=== PATIENT | male | born 1965 | race Caucasian/White ===

== ENCOUNTER → 2017-01-15 | Outpatient (CLI) | payer MEDICARE, MEDICAID ==
[~2017-01-15] MED LIST: ACTO30TA7 PO; BACL10TA2 PO; BUSP10TA PO; CYCL10TA PO; CYMB60CA3 PO; DICY20TA11 PO; DOCQ100C PO; HUMA50IN3 SC; LANTINJ4 SC; LISI-542 PO; METF-415 PO; ROBA750T4 PO; SIMV40TA2 PO; TRAM50TA2 PO; TRAZ100T4 PO; VICO5TAB16 PO; VICT18IN SC
--- NOTE | 2017-01-16 02:07 | ECWPNPC ---
PATIENT NAME: TERESA MALIK : 1965 GENDER: MALE VISIT DATE: 01/15/2017 DISCHARGE DATE: 01/15/17 1039 VISIT LOCKED DATE TIME: PHYSICIAN: OCTAVIANO SPARKS PHYSICIAN PAGER NO: [phone] RESOURCE: OCTAVIANO SPARKS REASON FOR APPOINTMENT 1. BACK HISTORY OF PRESENT ILLNESS HISTORY OF PRESENT ILLNESS: PAIN THE PATIENT DESCRIBES THE PAIN... FALL RISK SCREENING: SCREENING :NO FALLS IN THE PAST YEAR TODAY'S VISIT: NOTES: RATES PAIN TODAY 7-8/10. NOTES WORST OF PAIN IS AT BASE OF NECK AND ACROSS SHOULDERS. STATES LOW BACK IS GENERALLY FEELING VERY GOOD BUT DID HAVE FLAIR OF PAIN AFTER SHOVELING SNOW. NOTES NECK PAIN IS THE MOST PROMINENT AREA. . CURRENT MEDICATIONS TAKING ALBUTEROL SULFATE (2.5 MG/3ML) 0.083% NEBULIZATION SOLUTION 3 ML INHALATION THREE TIMES A DAY TAKING SIMVASTATIN 40 MG TABLET 1 TABLET IN THE EVENING ORALLY ONCE A DAY TAKING VENTOLIN HFA 108 (90 BASE) MCG/ACT AEROSOL SOLUTION 2 PUFFS NEEDED INHALATION EVERY 4 HRS TAKING TRAZODONE HCL 100 MG TABLET 1 TABLET AT BEDTIME ORALLY ONCE A DAY TAKING METFORMIN HCL 1000 MG (OSM) TABLET EXTENDED RELEASE 24 HOUR 1 TABLET WITH EVENING MEAL ORALLY BID TAKING BUSPIRONE HCL 10 MG TABLET 1 TABLET ORALLY TWICE A DAY TAKING ACCU-CHEK PEDRO PLUS STRIP DIRECTED IN VITRO TAKING ALCOHOL PREP 70 % PAD DIRECTED TAKING HUMALOG KWIKPEN 100 UNIT/ML SOLUTION 10UNITS SUBCUTANEOUS BID TAKING ACTOS 30 MG TABLET 1 TABLET ORALLY ONCE A DAY TAKING LISINOPRIL 5 MG TABLET 1 TABLET ORALLY ONCE A DAY TAKING DICYCLOMINE HCL 20 MG TABLET 1 TABLET ORALLY FOUR TIMES A DAY TAKING BD PEN MINI ------ MISCELLANEOUS DIRECTED FOR USE IN GIVEN INSULIN DAILY TAKING LANTUS SOLOSTAR 100 UNIT/ML SOLUTION 70 UNITS SUBCUTANEOUS ONCE A DAY TAKING COLACE 100 MG CAPSULE 2 ORALLY BID TAKING CYMBALTA 60 MG CAPSULE DELAYED RELEASE PARTICLES 1 CAPSULE ORALLY ONCE A DAY TAKING FLEXERIL 10 MG TABLET 1 TABLET ORALLY BID TAKING GABAPENTIN 300 MG CAPSULE 1 CAPSULE ORALLY THREE TIMES A DAY TAKING NORCO 5-325 MG TABLET 1-2 TABLET ORALLY Q6H PRN MDD8 TAKING TRAMADOL HCL 50 MG TABLET 1-2 TABS ORALLY EVERY 6 HOURS NEEDED MDD8 TAKING BYDUREON 2MG/VIAL ONCE WEEKLY NOT-TAKING VICTOZA 18 MG/3ML SOLUTION 1.8 ML SUBCUTANEOUS ONCE A WEEK NOT-TAKING ADVAIR DISKUS 250-50 MCG/DOSE AEROSOL POWDER BREATH ACTIVATED INHALE ONE PUFF BY MOUTH TWICE A DAY , NOTES: NONE NOT-TAKING CYCLOBENZAPRINE HCL 10 MG TABLET 1 TABLET ORALLY THREE TIMES A DAY NOT-TAKING OXYCODONE HCL 5 MG TABLET 1 TABLET ORALLY EVERY 4 HOURS NEEDED NOT-TAKING HYDROCODONE-ACETAMINOPHEN 5-325 MG TABLET 1 TABLET NEEDED ORALLY EVERY 4- 6 HRS PRN NOT-TAKING TRAMADOL HCL 50 MG TABLET 1-2 TABLET NEEDED ORALLY EVERY 4 HRS MDD4 NOT-TAKING TRAMADOL HCL 50 MG TABLET 1 -2 TABLET ORALLY EVERY 6 HRS PRN PAIN MDD=6 NOT-TAKING NORCO 5-325 MG TABLET 1 TABLET ORALLY EVERY 6 HRS PRN PAIN MDD=4 MEDICATION LIST REVIEWED AND RECONCILED WITH THE PATIENT PAST MEDICAL HISTORY DM TYPE II ASTHMA SLEEP DISORDER HYPERLIPIDEMIA HYPOGONADISM HX FRACTURE LEFT ANKLE AND BACK HYPERTENSION ALLERGIES PERCOCET: HIVES, THROAT SWELLING: ALLERGY SOCIAL HISTORY GENERAL: TOBACCO USE ARE YOU A:CURRENT SMOKER 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 NEW PATIENT PAIN DIARY TODAY'S VISITNOTES FROM 0-10, WHAT LEVEL IS YOUR PAIN TODAY?0 PAIN CLINIC PFS, CLERGY, PUBLIC HEALTH REFERRALS PFS REFERRAL NEEDED?NO CLERGY REFERRAL NEEDED?NO PUBLIC HEALTH REFERRAL NEEDED?NO WAS THE PROVIDER NOTIFIED OF ANY PERTINENT INFO?NO PFS REFERRAL NEEDED?NO CLERGY REFERRAL NEEDED?NO PUBLIC HEALTH REFERRAL NEEDED?NO WAS THE PROVIDER NOTIFIED OF ANY PERTINENT INFO?NO REVIEW OF SYSTEMS CONSTITUTIONAL: ANY CHANGE IN YOUR MEDICAL CONDITION? NO . CHILLS NO . FEVER NO . INFECTION: DO YOU HAVE NEW INFECTIONS? NO . DO YOU HAVE HISTORY OF MRSA? NO . MUSCULOSKELETAL: ANY NEW PATTERNS OF PAIN OR NUMBNESS? NO . GASTROENTEROLOGY: ANY NEW CHANGE IN BOWEL CONTROL? NO . GENITOURINARY: ANY NEW CHANGE IN BLADDER CONTROL? NO . IS THERE A CHANCE YOU COULD BE ? NO . HEMATOLOGY/LYMPH: DO YOU TAKE ANY BLOOD THINNERS? (FOR EXAMPLE- COUMADIN, PLAVIX, AGGRENOX, PLATEL, PRADAXA, OR XARELTO) NO . WHEN WAS YOUR LAST DOSE? DATE: TIME: . NEUROLOGY: HAVE YOU FALLEN IN THE PAST 6 MONTHS? NO . ANY NEW EXTREMITY NUMBNESS OR WEAKNESS? NO . CARDIOLOGY: DO YOU HAVE A PACEMAKER OR DEFIBRILLATOR? NO . RESPIRATORY: SLEEP APNEA YES - NOT TREATED - DID NOT SLEEP STUDY. WEARS OXYGEN AT NIGHT . HAVE YOU BEEN SICK IN THE PAST WEEK? NO . FEVER NO . FLU LIKE SYMPTOMS? NO . COUGH NO . INTEGUMENTARY: DO YOU HAVE ANY RASHES OR OPEN SORES? NO . ALLERGIC/IMMUNO: ARE YOU ALLERGIC TO SHELLFISH OR IV DYE? NO . ANY NEW ALLERGIES? NO . PSYCHIATRIC: DO YOU HAVE THOUGHTS OF HURTING YOURSELF OR SOMEONE ELSE? NO . ARE YOU ABUSED, NEGLECTED, OR IN AN UNSAFE ENVIRONMENT? NO . ENDOCRINOLOGY: ARE YOU DIABETIC? YES - 120 - 46. . OTHER: DO YOU NEED ANY PRESCRIPTIONS? NO . IF YES, PLEASE LIST: ____ . ANY NEW PROBLEMS WITH YOUR MEDICATIONS? NO . WHEN DID YOU LAST EAT? ____ . WHEN DID YOU LAST DRINK? ____ . WHAT DID YOU LAST DRINK? ____ . NAME OF PERSON DRIVING YOU HOME? ____ . DO YOU HAVE ANY OTHER QUESTIONS OR CONCERNS NO . REVIEWED BY: PROVIDER: OCTAVIANO MARTINEZ . VITAL SIGNS WT 285 LBS, HT 68 IN, BMI 43.33 INDEX, BP 162/80 MM HG, HR 76 /MIN, RR 16 /MIN, TEMP 97.8 F, OXYGEN SAT % 96, NA INITIALS TL 0950, REVIEWED BY: JAI. EXAMINATION GENERAL EXAMINATION: LUNGS: NO CRACKLES, CLEAR TO AUSCULTATION BILATERALLY. HEART:HEART RATE REGULAR. MUSCULOSKELETAL:MILD WEAKNESS IN PROXIMAL LOWER EXTREMITIES. CAN FLEX AT ANKLES AND TOES, TRIGGER POINTS:, ELICITED WITH PALPATION OVER MID THORACIC MUSCLES . POINT TENDERNESS OVER LUMBAR PARAVERTEBRAL MUSCLES. CAN RISE TO STANDING POSITION. POSTURE SLIGHTLY STOOPED. GAIT WIDE BASED NON ANTALGIC. ASSESSMENTS BURST FRACTURE OF LUMBAR VERTEBRA - S32.001A (PRIMARY) BACK PAIN - M54.9 MYALGIA - M79.1 CHRONIC PRESCRIPTION OPIATE USE - Z79.891 TREATMENT BURST FRACTURE OF LUMBAR VERTEBRA NOTES: UTOX TODAYWALK DAILY. CALL IF INJECTION TREATMENT NEEDED. USE TENS UNIT TO BACK NEEDED. USE PAIN MEDS INFREQUENTLY. TALK TO NEW PRIMARY CARE PROVIDER ABOUT SLEEP APNEA. SLEEPING PILLS NOT A GOOD IDEA. CLINICAL NOTES: ISTOP REGISTRY REVIEWED AND DEMNOSTRATES COMPLLIANCE. BRINGS IN MEDICATIONS WHICH IS APPROPRIATE FOR WHAT WAS DISPENSED. RECENT URINE TOXICOLOGY REVIEWED. NO UNAUTHORIZED MEDICATIONS. NO ILLICIT SUBSTANCES AND PRESCRIBED MEDICATIONS WERE PRESENT. PROCEDURE CODES FA211 ESTABILISHED PATIENT [facility] CHARGE DISPOSITION & COMMUNICATION FOLLOW UP 2-3 MONTS ELECTRONICALLY SIGNED BY INDU PARRA ON 01/15/2017 AT 10:56 AM EST DISCLAIMER : THIS IS A VISIT SUMMARY EXTRACTED FROM THE [facility] CHART. IT IS NOT A COPY OF THE [employer] PROGRESS NOTE. LAZARO
== END ==
LOC: M PAIN 09:20
PROVIDERS: ATTEND Nurse Practitioner Family
DX: Z09 Encounter for follow-up examination after completed treatment for conditions other than malignant neoplasm (principal); S32.001A Stable burst fracture of unspecified lumbar vertebra, initial encounter for closed fracture; M54.9 Dorsalgia, unspecified; M79.1 Myalgia; I10 Essential (primary) hypertension; E11.9 Type 2 diabetes mellitus without complications; J45.909 Unspecified asthma, uncomplicated; G47.30 Sleep apnea, unspecified; E78.5 Hyperlipidemia, unspecified; Z88.5 Allergy status to narcotic agent; F17.200 Nicotine dependence, unspecified, uncomplicated; Z79.891 Long term (current) use of opiate analgesic; Z79.52 Long term (current) use of systemic steroids; Z79.84 Long term (current) use of oral hypoglycemic drugs; Z79.4 Long term (current) use of insulin; Z79.899 Other long term (current) drug therapy; Z87.81 Personal history of (healed) traumatic fracture; Y92.9 Unspecified place or not applicable; Y93.9 Activity, unspecified; Y99.9 Unspecified external cause status; X58.XXXA Exposure to other specified factors, initial encounter

== ENCOUNTER → 2017-03-25 | Outpatient (CLI) | payer MEDICARE, MEDICAID ==
--- NOTE | 2017-03-27 02:32 | ECWPNPC ---
PATIENT NAME: TERESA MALIK : 1965 GENDER: MALE VISIT DATE: 03/25/2017 DISCHARGE DATE: 03/25/17 1027 VISIT LOCKED DATE TIME: PHYSICIAN: OCTAVIANO SPARKS PHYSICIAN PAGER NO: [phone] RESOURCE: OCTAVIANO SPARKS REASON FOR APPOINTMENT 1. BACK HISTORY OF PRESENT ILLNESS HISTORY OF PRESENT ILLNESS: PAIN THE PATIENT DESCRIBES THE PAIN... FALL RISK SCREENING: SCREENING :NO FALLS IN THE PAST YEAR TODAY'S VISIT: NOTES: RATES PAIN TODAY 6/10. DESCRIBES PAIN ACHING.STATES HE HAS BEEN ABLE TO BE MORE ACTIVE AND IS WALKING MORE. STILL HAS SOME SHOULDER DISCOMFORT. HAS NOT RETURNED TO HIS SURGEONS IN [place] FOR RE-EVAL. STATES HE IS "DOING TOO WELL."CONTINUES TO USE OXYGEN AT [facility] WHEN AWAY [facility] HOME AFTER ACTIVITY.. CURRENT MEDICATIONS TAKING ALBUTEROL SULFATE (2.5 MG/3ML) 0.083% NEBULIZATION SOLUTION 3 ML INHALATION THREE TIMES A DAY TAKING SIMVASTATIN 40 MG TABLET 1 TABLET IN THE EVENING ORALLY ONCE A DAY TAKING VENTOLIN HFA 108 (90 BASE) MCG/ACT AEROSOL SOLUTION 2 PUFFS INHALATION TWICE DAILY TAKING TRAZODONE HCL 100 MG TABLET 1 TABLET AT BEDTIME ORALLY ONCE A DAY TAKING METFORMIN HCL 1000 MG (OSM) TABLET EXTENDED RELEASE 24 HOUR 1 TABLET WITH EVENING MEAL ORALLY BID TAKING BUSPIRONE HCL 10 MG TABLET 1 TABLET ORALLY TWICE A DAY TAKING ACCU-CHEK PEDRO PLUS STRIP DIRECTED IN VITRO TAKING ALCOHOL PREP 70 % PAD DIRECTED TAKING HUMALOG KWIKPEN 100 UNIT/ML SOLUTION 10UNITS SUBCUTANEOUS BID TAKING ACTOS 30 MG TABLET 1 TABLET ORALLY ONCE A DAY TAKING LISINOPRIL 5 MG TABLET 1 TABLET ORALLY ONCE A DAY TAKING DICYCLOMINE HCL 20 MG TABLET 1 TABLET ORALLY FOUR TIMES A DAY TAKING BD PEN MINI ------ MISCELLANEOUS DIRECTED FOR USE IN GIVEN INSULIN DAILY TAKING LANTUS SOLOSTAR 100 UNIT/ML SOLUTION 70 UNITS SUBCUTANEOUS ONCE A DAY TAKING COLACE 100 MG CAPSULE 2 ORALLY BID TAKING CYMBALTA 60 MG CAPSULE DELAYED RELEASE PARTICLES 1 CAPSULE ORALLY ONCE A DAY TAKING GABAPENTIN 300 MG CAPSULE 1 CAPSULE ORALLY THREE TIMES A DAY TAKING BYDUREON 2MG/VIAL ONCE WEEKLY TAKING TRAMADOL HCL 50 MG TABLET 1-2 TABS ORALLY EVERY 6 HOURS PRN PAIN MDD=6 TAKING NORCO 5-325 MG TABLET 1-2 TABLET ORALLY Q6H PRN MDD6 DISCONTINUED FLEXERIL 10 MG TABLET 1 TABLET ORALLY BID DISCONTINUED VICTOZA 18 MG/3ML SOLUTION 1.8 ML SUBCUTANEOUS ONCE A WEEK DISCONTINUED ADVAIR DISKUS 250-50 MCG/DOSE AEROSOL POWDER BREATH ACTIVATED INHALE ONE PUFF BY MOUTH TWICE A DAY , NOTES: NONE DISCONTINUED CYCLOBENZAPRINE HCL 10 MG TABLET 1 TABLET ORALLY THREE TIMES A DAY DISCONTINUED OXYCODONE HCL 5 MG TABLET 1 TABLET ORALLY EVERY 4 HOURS NEEDED DISCONTINUED HYDROCODONE-ACETAMINOPHEN 5-325 MG TABLET 1 TABLET NEEDED ORALLY EVERY 4- 6 HRS PRN DISCONTINUED TRAMADOL HCL 50 MG TABLET 1-2 TABLET NEEDED ORALLY EVERY 4 HRS MDD4 DISCONTINUED TRAMADOL HCL 50 MG TABLET 1 -2 TABLET ORALLY EVERY 6 HRS PRN PAIN MDD=6 DISCONTINUED NORCO 5-325 MG TABLET 1 TABLET ORALLY EVERY 6 HRS PRN PAIN MDD=4 MEDICATION LIST REVIEWED AND RECONCILED WITH THE PATIENT PAST MEDICAL HISTORY DM TYPE II ASTHMA SLEEP DISORDER HYPERLIPIDEMIA HYPOGONADISM HX FRACTURE LEFT ANKLE AND BACK HYPERTENSION ALLERGIES PERCOCET: HIVES, THROAT SWELLING: ALLERGY REVIEW OF SYSTEMS CONSTITUTIONAL: ANY CHANGE IN YOUR MEDICAL CONDITION? NO . CHILLS NO . FEVER NO . INFECTION: DO YOU HAVE NEW INFECTIONS? NO . DO YOU HAVE HISTORY OF MRSA? NO . MUSCULOSKELETAL: ANY NEW PATTERNS OF PAIN OR NUMBNESS? NO . ARTHRITIS JOINT PAIN IN WRITS, USING SPLINTS AT NIGHT . GASTROENTEROLOGY: ANY NEW CHANGE IN BOWEL CONTROL? NO . GENITOURINARY: ANY NEW CHANGE IN BLADDER CONTROL? NO . IS THERE A CHANCE YOU COULD BE ? NO . HEMATOLOGY/LYMPH: DO YOU TAKE ANY BLOOD THINNERS? (FOR EXAMPLE- COUMADIN, PLAVIX, AGGRENOX, PLATEL, PRADAXA, OR XARELTO) NO . WHEN WAS YOUR LAST DOSE? DATE: TIME: . NEUROLOGY: HAVE YOU FALLEN IN THE PAST 6 MONTHS? YES . ANY NEW EXTREMITY NUMBNESS OR WEAKNESS? NO . CARDIOLOGY: DO YOU HAVE A PACEMAKER OR DEFIBRILLATOR? NO . RESPIRATORY: HAVE YOU BEEN SICK IN THE PAST WEEK? NO . FEVER NO . FLU LIKE SYMPTOMS? NO . COUGH NO . INTEGUMENTARY: DO YOU HAVE ANY RASHES OR OPEN SORES? YES - ABCESS/CARBUNCLES RIGHT INNER THIGH - ON ARTHRITIS . ALLERGIC/IMMUNO: ARE YOU ALLERGIC TO SHELLFISH OR IV DYE? NO . ANY NEW ALLERGIES? NO . PSYCHIATRIC: DO YOU HAVE THOUGHTS OF HURTING YOURSELF OR SOMEONE ELSE? NO . ARE YOU ABUSED, NEGLECTED, OR IN AN UNSAFE ENVIRONMENT? NO . ENDOCRINOLOGY: ARE YOU DIABETIC? YES - BLOOD SUGARS UNDER GOOD CONTROL . OTHER: DO YOU NEED ANY PRESCRIPTIONS? YES . IF YES, PLEASE LIST: TRAMADOL, VICODIN . ANY NEW PROBLEMS WITH YOUR MEDICATIONS? NO . WHEN DID YOU LAST EAT? ____ . WHEN DID YOU LAST DRINK? ____ . WHAT DID YOU LAST DRINK? ____ . NAME OF PERSON DRIVING YOU HOME? ____ . DO YOU HAVE ANY OTHER QUESTIONS OR CONCERNS NO . REVIEWED BY: PROVIDER: OCTAVIANO MARTINEZ . VITAL SIGNS WT 298.8 LBS, HT 68 IN, BMI 45.43 INDEX, BP 159/83 MM HG, HR 61 /MIN, RR 20 /MIN, TEMP 97.6 F, OXYGEN SAT % 93%, NA INITIALS TL 0950, REVIEWED BY: CM. EXAMINATION GENERAL EXAMINATION: LUNGS: NO CRACKLES, CLEAR TO AUSCULTATION BILATERALLY. HEART:HEART RATE REGULAR. MUSCULOSKELETAL:MILD WEAKNESS IN PROXIMAL LOWER EXTREMITIES. CAN FLEX AT ANKLES AND HIPS. . MILD TENDERNESS OVER LUMBAR PARAVERTEBRAL MUSCLES. CAN RISE EASILY TO STANDING POSITION. POSTURE SLIGHTLY STOOPED. GAIT WIDE BASED NON ANTALGIC AND RAPID.. ASSESSMENTS BACK PAIN - M54.9 (PRIMARY) BURST FRACTURE OF LUMBAR VERTEBRA - S32.001A MYALGIA - M79.1 PRIMARY OSTEOARTHRITIS INVOLVING MULTIPLE JOINTS - M15.0 CHRONIC PRESCRIPTION OPIATE USE - Z79.891 TREATMENT BACK PAIN REFILL TRAMADOL HCL TABLET, 50 MG, 1-2 TABS, ORALLY, EVERY 6 HOURS PRN PAIN MDD=6, 30 DAY(S), 180, REFILLS 2 REFILL NORCO TABLET, 5-325 MG, 1-2 TABLET, ORALLY, Q6H PRN MDD6, 30 DAY(S), 160, REFILLS 0 NOTES: CONTINUE CURRENT MEDS. WILL CONTINUE SLOW WEAN OF HYDROCODONE. WORK ON WEIGHT LOSS. WATCH DIET - DECREASE QUANTITY. PROCEDURE CODES FA211 ESTABILISHED PATIENT [facility] CHARGE DISPOSITION & COMMUNICATION FOLLOW UP 3 MONTHS ELECTRONICALLY SIGNED BY INDU PARRA ON 03/25/2017 AT 12:37 PM EDT DISCLAIMER : THIS IS A VISIT SUMMARY EXTRACTED FROM THE [facility] CHART. IT IS NOT A COPY OF THE [facility]. MTDD
== END ==
LOC: M PAIN 09:20
PROVIDERS: ATTEND Nurse Practitioner Family
DX: M54.9 Dorsalgia, unspecified (principal); S32.001A Stable burst fracture of unspecified lumbar vertebra, initial encounter for closed fracture; M79.1 Myalgia; M15.0 Primary generalized (osteo)arthritis; Z79.891 Long term (current) use of opiate analgesic; Z79.899 Other long term (current) drug therapy; Z79.84 Long term (current) use of oral hypoglycemic drugs; Z79.4 Long term (current) use of insulin; E11.9 Type 2 diabetes mellitus without complications; J45.909 Unspecified asthma, uncomplicated; G47.9 Sleep disorder, unspecified; E78.5 Hyperlipidemia, unspecified; I10 Essential (primary) hypertension; Z88.5 Allergy status to narcotic agent; X58.XXXA Exposure to other specified factors, initial encounter; Y92.89 Other specified places as the place of occurrence of the external cause; Y93.89 Activity, other specified; Y99.8 Other external cause status

== ENCOUNTER → 2017-06-20 | Outpatient (CLI) | payer MEDICARE, MEDICAID ==
[~2017-06-20] MED LIST changes: +ACTO30TA15 PO; -ACTO30TA7 PO; +TRAZ-136 PO; -TRAZ100T4 PO
--- NOTE | 2017-07-11 01:08 | ECWPNPC ---
PATIENT NAME: TERESA MALIK : 1965 GENDER: MALE VISIT DATE: 06/20/2017 DISCHARGE DATE: 06/20/17 1026 VISIT LOCKED DATE TIME: PHYSICIAN: OCTAVIANO SPARKS PHYSICIAN PAGER NO: [phone] RESOURCE: OCTAVIANO SPARKS REASON FOR APPOINTMENT 1. BACK HISTORY OF PRESENT ILLNESS HISTORY OF PRESENT ILLNESS: PAIN THE PATIENT DESCRIBES THE PAIN... FALL RISK SCREENING: SCREENING :NO FALLS IN THE PAST YEAR TODAY'S VISIT: NOTES: INSURANCE HAS STOPPED PAYING FOR TENS UNIT PADS, WANTS TO KEEP PAIN MEDS THE SAME UNTIL HE CAN FIND A NEW SOURCE FOR FOR THIS. RATES PAIN TODAY 7/10. DESCRIBES PAIN CONSTANT AND ACHING. NOTES ALMOST NO PAIN IN LOW BACK, BUT SHOULDERS ARE VERY PAINFUL.. CURRENT MEDICATIONS TAKING ALBUTEROL SULFATE (2.5 MG/3ML) 0.083% NEBULIZATION SOLUTION 3 ML INHALATION THREE TIMES A DAY TAKING SIMVASTATIN 40 MG TABLET 1 TABLET IN THE EVENING ORALLY ONCE A DAY TAKING VENTOLIN HFA 108 (90 BASE) MCG/ACT AEROSOL SOLUTION 2 PUFFS INHALATION TWICE DAILY TAKING TRAZODONE HCL 100 MG TABLET 1 TABLET AT BEDTIME ORALLY ONCE A DAY TAKING METFORMIN HCL 1000 MG (OSM) TABLET EXTENDED RELEASE 24 HOUR 1 TABLET WITH EVENING MEAL ORALLY BID TAKING BUSPIRONE HCL 10 MG TABLET 1 TABLET ORALLY TWICE A DAY TAKING ACCU-CHEK PEDRO PLUS STRIP DIRECTED IN VITRO TAKING ALCOHOL PREP 70 % PAD DIRECTED TAKING HUMALOG KWIKPEN 100 UNIT/ML SOLUTION 10UNITS SUBCUTANEOUS BID TAKING ACTOS 30 MG TABLET 1 TABLET ORALLY ONCE A DAY TAKING LISINOPRIL 5 MG TABLET 1 TABLET ORALLY ONCE A DAY TAKING DICYCLOMINE HCL 20 MG TABLET 1 TABLET ORALLY FOUR TIMES A DAY TAKING BD PEN MINI ------ MISCELLANEOUS DIRECTED FOR USE IN GIVEN INSULIN DAILY TAKING LANTUS SOLOSTAR 100 UNIT/ML SOLUTION 70 UNITS SUBCUTANEOUS ONCE A DAY TAKING COLACE 100 MG CAPSULE 2 ORALLY BID TAKING CYMBALTA 60 MG CAPSULE DELAYED RELEASE PARTICLES 1 CAPSULE ORALLY ONCE A DAY TAKING GABAPENTIN 300 MG CAPSULE 1 CAPSULE ORALLY THREE TIMES A DAY TAKING BYDUREON 2MG/VIAL ONCE WEEKLY TAKING TRAMADOL HCL 50 MG TABLET 1-2 TABS ORALLY EVERY 6 HOURS PRN PAIN MDD=6 TAKING NORCO 5-325 MG TABLET 1-2 TABLET ORALLY Q6H PRN MDD=5 MEDICATION LIST REVIEWED AND RECONCILED WITH THE PATIENT PAST MEDICAL HISTORY DM TYPE II ASTHMA SLEEP DISORDER HYPERLIPIDEMIA HYPOGONADISM HX FRACTURE LEFT ANKLE AND BACK HYPERTENSION ALLERGIES PERCOCET: HIVES, THROAT SWELLING: ALLERGY SURGICAL HISTORY HERNIA REPAIR X 3 07/2011 HOSPITALIZATION/MAJOR DIAGNOSTIC PROCEDURE FELL OUT OF TREE 35 FT DROP SURGICALY RELATED REVIEW OF SYSTEMS REVIEWED BY: PROVIDER: OCTAVIANO ORTAP . CONSTITUTIONAL: ANY CHANGE IN YOUR MEDICAL CONDITION? NO . CHILLS NO . FEVER NO . INFECTION: DO YOU HAVE NEW INFECTIONS? NO . DO YOU HAVE HISTORY OF MRSA? NO . MUSCULOSKELETAL: ANY NEW PATTERNS OF PAIN OR NUMBNESS? NO . GASTROENTEROLOGY: ANY NEW CHANGE IN BOWEL CONTROL? NO . GENITOURINARY: ANY NEW CHANGE IN BLADDER CONTROL? NO . IS THERE A CHANCE YOU COULD BE ? NO . HEMATOLOGY/LYMPH: DO YOU TAKE ANY BLOOD THINNERS? (FOR EXAMPLE- COUMADIN, PLAVIX, AGGRENOX, PLATEL, PRADAXA, OR XARELTO) NO . WHEN WAS YOUR LAST DOSE? DATE: TIME: . NEUROLOGY: HAVE YOU FALLEN IN THE PAST 6 MONTHS? NO . ANY NEW EXTREMITY NUMBNESS OR WEAKNESS? NO . CARDIOLOGY: DO YOU HAVE A PACEMAKER OR DEFIBRILLATOR? NO . RESPIRATORY: SLEEP APNEA NEWLY DIAGNOSOED. CPAP TO BE DELIVERED NEXT SATURDAY . HAVE YOU BEEN SICK IN THE PAST WEEK? NO . FEVER NO . FLU LIKE SYMPTOMS? NO . SHORTNESS OF BREATH ON EXERTION ON CHRONIC OXYGEN . COUGH NO . INTEGUMENTARY: DO YOU HAVE ANY RASHES OR OPEN SORES? NO . ALLERGIC/IMMUNO: ARE YOU ALLERGIC TO SHELLFISH OR IV DYE? NO . ANY NEW ALLERGIES? NO . PSYCHIATRIC: DO YOU HAVE THOUGHTS OF HURTING YOURSELF OR SOMEONE ELSE? NO . ARE YOU ABUSED, NEGLECTED, OR IN AN UNSAFE ENVIRONMENT? NO . ENDOCRINOLOGY: ARE YOU DIABETIC? YES - STABLE BUT INSURANCE STOPPED COVERING HIS INSULIN. . OTHER: DO YOU NEED ANY PRESCRIPTIONS? NO . IF YES, PLEASE LIST: ____ . ANY NEW PROBLEMS WITH YOUR MEDICATIONS? NO . WHEN DID YOU LAST EAT? ____ . WHEN DID YOU LAST DRINK? ____ . WHAT DID YOU LAST DRINK? ____ . NAME OF PERSON DRIVING YOU HOME? ____ . DO YOU HAVE ANY OTHER QUESTIONS OR CONCERNS NO . VITAL SIGNS WT 287.0 LBS, HT 68 IN, BMI 43.63 INDEX, BP 148/87 MM HG, HR 105 /MIN, RR 18 /MIN, TEMP 98.0 F, OXYGEN SAT % 97, SAFE IN ENV? (Y/N) YES, NA INITIALS MP 951, REVIEWED BY: CHARITY. EXAMINATION GENERAL EXAMINATION: LUNGS: NO CRACKLES, CLEAR TO AUSCULTATION BILATERALLY. HEART:HEART RATE REGULAR. MUSCULOSKELETAL:MILD WEAKNESS IN PROXIMAL LOWER EXTREMITIES. CAN FLEX AT ANKLES AND HIPS. . MILD TENDERNESS OVER LUMBAR PARAVERTEBRAL MUSCLES. CAN RISE EASILY TO STANDING POSITION. POSTURE SLIGHTLY STOOPED. GAIT WIDE BASED NON ANTALGIC AND RAPID.. ASSESSMENTS BACK PAIN - M54.9 (PRIMARY) BURST FRACTURE OF LUMBAR VERTEBRA - S32.001A MYALGIA - M79.1 PRIMARY OSTEOARTHRITIS INVOLVING MULTIPLE JOINTS - M15.0 CHRONIC PRESCRIPTION OPIATE USE - Z79.891 TREATMENT BACK PAIN REFILL TRAMADOL HCL TABLET, 50 MG, 1-2 TABS, ORALLY, EVERY 6 HOURS PRN PAIN MDD=6, 30 DAY(S), 180, REFILLS 2 REFILL NORCO TABLET, 5-325 MG, 1-2 TABLET, ORALLY, Q6H PRN MDD=5, 30 DAY(S), 140, REFILLS 0 NOTES: WORK ON QUITTING SMOKING. LOOK FOR TENS ELECTRODES ON INTERNET. CLINICAL NOTES: FALLS CARE PLAN: 1. RECOMMEND REMOVING ALL THROW RUGS. 2. RECOMMEND NIGHT LIGHTS 3. RECOMMEND WEARING RUBBER SOLED SHOES AND TO NOT GO BAREFOOT. 4.. ADVISED TO CHANGE POSITION SLOWLY FROM SUPINE TO STANDING TO AVOID DIZZINESS. 5. DO NT CLIMB TREES, # 226 TOBACCO USE SCREENING/INTERVENTION: PATIENT CURRENTLY USED TOBACCO. WAS OFFERED SMOKING CESSATION FOR GUIDANCE IN QUITTING THROUGH THE [facility] QUITS PROGRAM AND THE [facility] CESSATION PROGRAM. , #128 - SCREENING BMI AND F/U PLAN IN : BMI ABOVE NORMAL TODAY. DISCUSSED WITH PATIENT NUTRITIONAL FOOD CHOICES TO ASSIST WITH WEIGHT LOSS. RECCOMMENDED REDUCING SALT, SUGAR, SODA INTAKE. RECOMMEND INCREASE ACTIVITY TO INCLUDE WALKING ON A REGULAR BASIS. PROCEDURE CODES FA211 ESTABILISHED PATIENT [facility] CHARGE A4585 BP SCR PRFRM RCMDD DEFIND SCR INTVL G8730 PAIN ASSESS POS TOOL F/U PLAN DOC 3016F PT SCRND UNHLTHY OH USE 1124F ACP DISCUSS-NO DSCNMKR DOCD 0518F FALL PLAN OF CARE DOCD G7212 DOC MEDS VERIFIED W/PT OR RE G8417 BMI >=30 CALCUATE W/FOLLOWUP 3288F FALL RISK ASSESSMENT DOCD 4004F PT TOBACCO SCREEN RCVD TLK DISPOSITION & COMMUNICATION FOLLOW UP 7 WEEKS (REASON: JOINT PAIN) ELECTRONICALLY SIGNED BY INDU PARRA ON 07/10/2017 AT 06:07 PM EDT DISCLAIMER : THIS IS A VISIT SUMMARY EXTRACTED FROM THE [email or web address] CHART. IT IS NOT A COPY OF THE [facility] PROGRESS NOTE. MTDD
== END ==
LOC: M PAIN 09:40
PROVIDERS: ATTEND Nurse Practitioner Family
DX: M54.9 Dorsalgia, unspecified (principal); S32.001A Stable burst fracture of unspecified lumbar vertebra, initial encounter for closed fracture; M79.1 Myalgia; M15.0 Primary generalized (osteo)arthritis; E11.9 Type 2 diabetes mellitus without complications; J45.909 Unspecified asthma, uncomplicated; G47.30 Sleep apnea, unspecified; E78.5 Hyperlipidemia, unspecified; I10 Essential (primary) hypertension; E29.1 Testicular hypofunction; Z72.0 Tobacco use; Z79.891 Long term (current) use of opiate analgesic; Z79.84 Long term (current) use of oral hypoglycemic drugs; Z79.4 Long term (current) use of insulin; Z79.899 Other long term (current) drug therapy; Z88.5 Allergy status to narcotic agent

== ENCOUNTER → 2017-08-06 | Outpatient (CLI) | payer MEDICARE, MEDICAID ==
--- NOTE | 2017-08-08 01:50 | ECWPNPC ---
PATIENT NAME: TERESA MALIK : 1965 GENDER: MALE VISIT DATE: 08/06/2017 DISCHARGE DATE: 08/06/17 1048 VISIT LOCKED DATE TIME: PHYSICIAN: OCTAVIANO SPARKS PHYSICIAN PAGER NO: [phone] RESOURCE: OCTAVIANO SPARKS REASON FOR APPOINTMENT 1. SHOULDERS AND BACK HISTORY OF PRESENT ILLNESS HISTORY OF PRESENT ILLNESS: PAIN THE PATIENT DESCRIBES THE PAIN... FALL RISK SCREENING: SCREENING :NO FALLS IN THE PAST YEAR TODAY'S VISIT: NOTES: FEW WEEKS AGO HAD SHARP PAIN IN LEFT SHOULDER AND THIS WAS WORSE WITH TURNING HEAD TO RIGHT OCCURRED AFTER LIFING OXYGENCYLINDERS. RATES PAIN TODAY 6/10. DESCRIBES PAIN CONSTANT. REPORT BACK PAIN IS ALMOST COMPLETELY GONE. CURRENT MEDICATIONS TAKING ALBUTEROL SULFATE (2.5 MG/3ML) 0.083% NEBULIZATION SOLUTION 3 ML INHALATION THREE TIMES A DAY TAKING SIMVASTATIN 40 MG TABLET 1 TABLET IN THE EVENING ORALLY ONCE A DAY TAKING VENTOLIN HFA 108 (90 BASE) MCG/ACT AEROSOL SOLUTION 2 PUFFS INHALATION TWICE DAILY TAKING TRAZODONE HCL 100 MG TABLET 1 TABLET AT BEDTIME ORALLY ONCE A DAY TAKING METFORMIN HCL 1000 MG (OSM) TABLET EXTENDED RELEASE 24 HOUR 1 TABLET WITH EVENING MEAL ORALLY BID TAKING BUSPIRONE HCL 10 MG TABLET 1 TABLET ORALLY TWICE A DAY TAKING ACCU-CHEK PEDRO PLUS STRIP DIRECTED IN VITRO TAKING ALCOHOL PREP 70 % PAD DIRECTED TAKING HUMALOG KWIKPEN 100 UNIT/ML SOLUTION 10UNITS SUBCUTANEOUS BID TAKING ACTOS 30 MG TABLET 1 TABLET ORALLY ONCE A DAY TAKING LISINOPRIL 10 MG TABLET 1 TABLET ORALLY ONCE A DAY TAKING DICYCLOMINE HCL 20 MG TABLET 1 TABLET ORALLY FOUR TIMES A DAY TAKING BD PEN MINI ------ MISCELLANEOUS DIRECTED FOR USE IN GIVEN INSULIN DAILY TAKING LANTUS SOLOSTAR 100 UNIT/ML SOLUTION 70 UNITS SUBCUTANEOUS ONCE A DAY TAKING COLACE 100 MG CAPSULE 2 ORALLY BID TAKING CYMBALTA 60 MG CAPSULE DELAYED RELEASE PARTICLES 1 CAPSULE ORALLY ONCE A DAY TAKING GABAPENTIN 300 MG CAPSULE 1 CAPSULE ORALLY THREE TIMES A DAY TAKING BYDUREON 2MG/VIAL ONCE WEEKLY TAKING TRAMADOL HCL 50 MG TABLET 1-2 TABS ORALLY EVERY 6 HOURS PRN PAIN MDD=6 TAKING NORCO 5-325 MG TABLET 1-2 TABLET ORALLY Q6H PRN MDD=5 TAKING ADVAIR DISKUS 250-50 MCG/DOSE MISCELLANEOUS INHALATION TAKING CYCLOBENZAPRINE HCL 10 MG TABLET 1 TABLET NEEDED ORALLY THREE TIMES A DAY TAKING SYMBICORT 80-4.5 MCG/ACT AEROSOL 2 PUFFS INHALATION TWICE A DAY TAKING ASPIRIN ADULT LOW STRENGTH 81 MG TABLET DELAYED RELEASE 1 TABLET ORALLY ONCE A DAY MEDICATION LIST REVIEWED AND RECONCILED WITH THE PATIENT PAST MEDICAL HISTORY DM TYPE II ASTHMA SLEEP DISORDER HYPERLIPIDEMIA HYPOGONADISM HX FRACTURE LEFT ANKLE AND BACK HYPERTENSION ALLERGIES PERCOCET: HIVES, THROAT SWELLING: ALLERGY REVIEW OF SYSTEMS REVIEWED BY: PROVIDER: OCTAVIANO MARTINEZ . CONSTITUTIONAL: ANY CHANGE IN YOUR MEDICAL CONDITION? NO . CHILLS NO . FEVER NO . INFECTION: DO YOU HAVE NEW INFECTIONS? NO . DO YOU HAVE HISTORY OF MRSA? NO . MUSCULOSKELETAL: ANY NEW PATTERNS OF PAIN OR NUMBNESS? NO . GASTROENTEROLOGY: ANY NEW CHANGE IN BOWEL CONTROL? NO . GENITOURINARY: ANY NEW CHANGE IN BLADDER CONTROL? NO . IS THERE A CHANCE YOU COULD BE ? NO . HEMATOLOGY/LYMPH: DO YOU TAKE ANY BLOOD THINNERS? (FOR EXAMPLE- COUMADIN, PLAVIX, AGGRENOX, PLATEL, PRADAXA, OR XARELTO) NO . WHEN WAS YOUR LAST DOSE? DATE: TIME: . NEUROLOGY: HAVE YOU FALLEN IN THE PAST 6 MONTHS? NO . ANY NEW EXTREMITY NUMBNESS OR WEAKNESS? NO . CARDIOLOGY: DO YOU HAVE A PACEMAKER OR DEFIBRILLATOR? NO . RESPIRATORY: SLEEP APNEA STARTED ON CPAP . HAVE YOU BEEN SICK IN THE PAST WEEK? NO . FEVER NO . FLU LIKE SYMPTOMS? NO . SHORTNESS OF BREATH ON EXERTION STILL WITH HOME OXYGEN . COUGH NO . INTEGUMENTARY: DO YOU HAVE ANY RASHES OR OPEN SORES? NO . ALLERGIC/IMMUNO: ARE YOU ALLERGIC TO SHELLFISH OR IV DYE? NO . ANY NEW ALLERGIES? NO . PSYCHIATRIC: DO YOU HAVE THOUGHTS OF HURTING YOURSELF OR SOMEONE ELSE? NO . ARE YOU ABUSED, NEGLECTED, OR IN AN UNSAFE ENVIRONMENT? NO . ENDOCRINOLOGY: ARE YOU DIABETIC? YES - [facility] IS FOLLOWING CLOSELY . OTHER: DO YOU NEED ANY PRESCRIPTIONS? NO . IF YES, PLEASE LIST: ____ . ANY NEW PROBLEMS WITH YOUR MEDICATIONS? NO . WHEN DID YOU LAST EAT? ____ . WHEN DID YOU LAST DRINK? ____ . WHAT DID YOU LAST DRINK? ____ . NAME OF PERSON DRIVING YOU HOME? ____ . DO YOU HAVE ANY OTHER QUESTIONS OR CONCERNS NO . VITAL SIGNS WT 301.4 LBS, HT 68 IN, BMI 45.82 INDEX, BP 145/73 MM HG, HR 99 /MIN, RR 18 /MIN, TEMP 97.6 F, OXYGEN SAT % 95%, NA INITIALS AW 0944, REVIEWED BY: CM. EXAMINATION GENERAL EXAMINATION: PSYCHORIENTED X 3 , ALERT , APPROPRIATE MOOD AND AFFECT , VERY TALKATIVE. LUNGS:WHEEZES RIGHT LOWER AND BILATERAL UPPER LOBES/. HEART:HEART RATE REGULAR. MUSCULOSKELETAL:MUSCLE STRENGTH TESTING 5/5 BILATERAL UPPER AND LOWER EXTREMITIES. MARKED DECREASE IN ROM AT BILATERAL AC JOINTS, LEFT > RIGHGT. NO TENDERNESS WITH PALPATION OVER LUMBAT OR THORACIC SPINOUS PROCESSES. RISES EASILY TO STANDING POSITION. POSTURE UPRIGHT. GAIT RAPID, NONANTALGIC. ASSESSMENTS BACK PAIN - M54.9 (PRIMARY) BURST FRACTURE OF LUMBAR VERTEBRA - S32.001A MYALGIA - M79.1 PRIMARY OSTEOARTHRITIS INVOLVING MULTIPLE JOINTS - M15.0 CHRONIC PRESCRIPTION OPIATE USE - Z79.891 TREATMENT BACK PAIN NOTES: WILL CONTINUE HYDROCODONE TO 130 TABS FOR 30 DAYS. NOVEMBER WILL BE 120 TABS PER MONTH - MAX 4 PER DAYWATCH WEIGHT - DECREASE PORTIONS AND DECREASE CARBS. LIMIT BREADWALK AND STRETCH EVERY DAY. CONTINUE CPAP. CLINICAL NOTES: ISTOP REGISTRY REVIEWED AND DEMNOSTRATES COMPLLIANCE. BRINGS IN MEDICATIONS WHICH IS APPROPRIATE FOR WHAT WAS DISPENSED. RECENT URINE TOXICOLOGY REVIEWED. NO UNAUTHORIZED MEDICATIONS. NO ILLICIT SUBSTANCES AND PRESCRIBED MEDICATIONS WERE PRESENT. PROCEDURE CODES FA211 ESTABILISHED PATIENT [facility] CHARGE G8730 PAIN ASSESS POS TOOL F/U PLAN DOC G8427 DOC MEDS VERIFIED W/PT OR RE DISPOSITION & COMMUNICATION FOLLOW UP 3 MONTHS (REASON: SHOULDER PAIN) ELECTRONICALLY SIGNED BY INDU PARRA ON 08/07/2017 AT 01:32 PM EDT DISCLAIMER : THIS IS A VISIT SUMMARY EXTRACTED FROM THE [employer] CHART. IT IS NOT A COPY OF THE [employer] PROGRESS NOTE. LAZARO
== END ==
LOC: M PAIN 10:00
PROVIDERS: ATTEND Nurse Practitioner Family
DX: M54.9 Dorsalgia, unspecified (principal); S32.001A Stable burst fracture of unspecified lumbar vertebra, initial encounter for closed fracture; M79.1 Myalgia; M15.0 Primary generalized (osteo)arthritis; E11.9 Type 2 diabetes mellitus without complications; G47.30 Sleep apnea, unspecified; Z79.891 Long term (current) use of opiate analgesic; Z79.899 Other long term (current) drug therapy; Z79.84 Long term (current) use of oral hypoglycemic drugs; Z79.4 Long term (current) use of insulin; Z79.82 Long term (current) use of aspirin; Z88.5 Allergy status to narcotic agent

== ENCOUNTER → 2017-11-27 | Outpatient (CLI) | payer MEDICARE, MEDICAID | LOC: M PAIN 13:45 | DX: M54.9 Dorsalgia, unspecified (principal); S32.001S Stable burst fracture of unspecified lumbar vertebra, sequela; M79.1 Myalgia; I10 Essential (primary) hypertension; E11.9 Type 2 diabetes mellitus without complications; J45.909 Unspecified asthma, uncomplicated; G47.9 Sleep disorder, unspecified; E78.5 Hyperlipidemia, unspecified; F17.200 Nicotine dependence, unspecified, uncomplicated; Z79.4 Long term (current) use of insulin; Z79.82 Long term (current) use of aspirin; Z79.891 Long term (current) use of opiate analgesic; Z79.899 Other long term (current) drug therapy; Z88.5 Allergy status to narcotic agent; Z95.811 Presence of heart assist device | CPT/HCPCS: G0463 ==

== ENCOUNTER → 2017-12-19 | Outpatient (CLI) | payer MEDICARE, MEDICAID | LOC: M PAIN 09:15 | DX: G89.29 Other chronic pain (principal); M79.1 Myalgia; M54.9 Dorsalgia, unspecified; S32.001A Stable burst fracture of unspecified lumbar vertebra, initial encounter for closed fracture; E11.9 Type 2 diabetes mellitus without complications; J45.909 Unspecified asthma, uncomplicated; E78.5 Hyperlipidemia, unspecified; I10 Essential (primary) hypertension; F17.210 Nicotine dependence, cigarettes, uncomplicated; Z88.5 Allergy status to narcotic agent; Z79.891 Long term (current) use of opiate analgesic; Z79.4 Long term (current) use of insulin; Z79.82 Long term (current) use of aspirin; Z79.899 Other long term (current) drug therapy; X58.XXXA Exposure to other specified factors, initial encounter; Y92.9 Unspecified place or not applicable | CPT/HCPCS: G0463 ==

== ENCOUNTER → 2018-01-28 | Outpatient (CLI) | payer MEDICARE, MEDICAID | LOC: M PAIN 09:45 | DX: G89.29 Other chronic pain (principal); M79.1 Myalgia; M54.9 Dorsalgia, unspecified; E11.9 Type 2 diabetes mellitus without complications; J45.909 Unspecified asthma, uncomplicated; E78.5 Hyperlipidemia, unspecified; E29.1 Testicular hypofunction; I10 Essential (primary) hypertension; F17.210 Nicotine dependence, cigarettes, uncomplicated; Z79.4 Long term (current) use of insulin; Z79.891 Long term (current) use of opiate analgesic; Z79.82 Long term (current) use of aspirin; Z79.899 Other long term (current) drug therapy; Z88.5 Allergy status to narcotic agent | CPT/HCPCS: G0463 ==

== ENCOUNTER → 2018-04-30 | Outpatient (CLI) | payer MEDICARE, MEDICAID | LOC: M PAIN 08:30 | DX: M79.1 Myalgia (principal); M54.9 Dorsalgia, unspecified; S32.001A Stable burst fracture of unspecified lumbar vertebra, initial encounter for closed fracture; E11.9 Type 2 diabetes mellitus without complications; I10 Essential (primary) hypertension; J45.909 Unspecified asthma, uncomplicated; F17.210 Nicotine dependence, cigarettes, uncomplicated; Z79.4 Long term (current) use of insulin; Z79.82 Long term (current) use of aspirin; Z79.891 Long term (current) use of opiate analgesic; Z79.899 Other long term (current) drug therapy; Z88.8 Allergy status to other drugs, medicaments and biological substances | CPT/HCPCS: G0463 ==

== ENCOUNTER → 2018-06-30 | Outpatient (CLI) | payer MEDICARE, MEDICAID | LOC: M PAIN 08:45 | DX: M79.1 Myalgia (principal); M54.9 Dorsalgia, unspecified; E11.9 Type 2 diabetes mellitus without complications; J45.909 Unspecified asthma, uncomplicated; G47.9 Sleep disorder, unspecified; E78.2 Mixed hyperlipidemia; E29.1 Testicular hypofunction; I10 Essential (primary) hypertension; F17.210 Nicotine dependence, cigarettes, uncomplicated; Z79.4 Long term (current) use of insulin; Z79.891 Long term (current) use of opiate analgesic; Z79.899 Other long term (current) drug therapy; Z88.5 Allergy status to narcotic agent | CPT/HCPCS: G0463 ==

== ENCOUNTER → 2018-09-15 | Outpatient (CLI) | payer MEDICARE, MEDICAID | LOC: M PAIN 10:00 | DX: M79.18 Myalgia, other site (principal); M54.9 Dorsalgia, unspecified; S32.001S Stable burst fracture of unspecified lumbar vertebra, sequela; E11.9 Type 2 diabetes mellitus without complications; J45.909 Unspecified asthma, uncomplicated; E78.5 Hyperlipidemia, unspecified; I10 Essential (primary) hypertension; G47.00 Insomnia, unspecified; Z72.0 Tobacco use; E66.01 Morbid (severe) obesity due to excess calories; Z68.41 Body mass index [BMI] 40.0-44.9, adult; Z79.4 Long term (current) use of insulin; Z79.82 Long term (current) use of aspirin; Z79.891 Long term (current) use of opiate analgesic; Z79.899 Other long term (current) drug therapy; Z88.8 Allergy status to other drugs, medicaments and biological substances | CPT/HCPCS: G0463 ==

== ENCOUNTER → 2019-01-29 | Outpatient (CLI) | payer MEDICARE, MEDICAID ==
[~2019-01-29] MED LIST changes: -DOCQ100C PO; +DOCQ100C5 PO; -TRAZ-136 PO; +TRAZ-163 PO
--- NOTE | 2019-02-13 00:53 | ECWPNPC ---
PATIENT NAME: TERESA MALIK : 1965 GENDER: MALE VISIT DATE: 01/29/2019 DISCHARGE DATE: 01/29/19 1021 VISIT LOCKED DATE TIME: PHYSICIAN: TRINI SHIPLEY RESOURCE: TRINI SHIPLEY REASON FOR APPOINTMENT 1. BACK PAIN, ADD ON PER TRINI HISTORY OF PRESENT ILLNESS HISTORY OF PRESENT ILLNESS: HERE FOR F/U OF CHRONIC LOW BACK PAIN.CURRENTLY USING TRAMADOL AND TIZANIDINE.USING 6 TABLETS PER DAY.DISCUSSED MEDICATION AND TREATMENT OPTIONS.NOT A CANDIDATE FOR OPIODS.RATING PAIN VAS 7/10.PAIN IS GENERALIZED BACK PAIN. PAIN THE PATIENT DESCRIBES THE PAIN... FALL RISK SCREENING: SCREENING : NO FALLS IN THE PAST YEAR. CURRENT MEDICATIONS TAKING ALBUTEROL SULFATE (2.5 MG/3ML) 0.083% NEBULIZATION SOLUTION 3 ML INHALATION THREE TIMES A DAY TAKING SIMVASTATIN 40 MG TABLET 1 TABLET IN THE EVENING ORALLY ONCE A DAY TAKING VENTOLIN HFA 108 (90 BASE) MCG/ACT AEROSOL SOLUTION 2 PUFFS INHALATION TWICE DAILY TAKING TRAZODONE HCL 100 MG TABLET 1 TABLET AT BEDTIME ORALLY ONCE A DAY TAKING METFORMIN HCL 1000 MG (OSM) TABLET EXTENDED RELEASE 24 HOUR 1 TABLET WITH EVENING MEAL ORALLY BID TAKING BUSPIRONE HCL 10 MG TABLET 1 TABLET ORALLY TWICE A DAY TAKING HUMALOG KWIKPEN 100 UNIT/ML SOLUTION 10UNITS SUBCUTANEOUS BID TAKING ACTOS 30 MG TABLET 1 TABLET ORALLY ONCE A DAY TAKING LISINOPRIL 10 MG TABLET 1 TABLET ORALLY ONCE A DAY TAKING DICYCLOMINE HCL 20 MG TABLET 1 TABLET ORALLY FOUR TIMES A DAY TAKING LANTUS SOLOSTAR 100 UNIT/ML SOLUTION 70 UNITS SUBCUTANEOUS ONCE A DAY TAKING COLACE 100 MG CAPSULE 2 ORALLY BID TAKING CYMBALTA 60 MG CAPSULE DELAYED RELEASE PARTICLES 1 CAPSULE ORALLY ONCE A DAY TAKING GABAPENTIN 300 MG CAPSULE 1 CAPSULE ORALLY THREE TIMES A DAY TAKING BYDUREON 2MG/VIAL ONCE WEEKLY TAKING ADVAIR DISKUS 250-50 MCG/DOSE MISCELLANEOUS INHALATION TAKING SYMBICORT 80-4.5 MCG/ACT AEROSOL 2 PUFFS INHALATION TWICE A DAY TAKING ASPIRIN ADULT LOW STRENGTH 81 MG TABLET DELAYED RELEASE 1 TABLET ORALLY ONCE A DAY TAKING TIZANIDINE HCL 4 MG TABLET 1 TABLET NEEDED ORALLY THREE TIMES A DAY TAKING ANDROGEL 25 MG/2.5GM (1%) GEL 2 PACKETS TO SKIN IN THE MORNING TRANSDERMAL ONCE A DAY TAKING TRAMADOL HCL 50 MG TABLET 1-2 TABS ORALLY EVERY 6 HOURS PRN PAIN MDD=6 TAKING ACCU-CHEK PEDRO PLUS STRIP DIRECTED IN VITRO TAKING ALCOHOL PREP 70 % PAD DIRECTED TAKING BD PEN MINI ------ MISCELLANEOUS DIRECTED FOR USE IN GIVEN INSULIN DAILY MEDICATION LIST REVIEWED AND RECONCILED WITH THE PATIENT PAST MEDICAL HISTORY ASTHMA SLEEP DISORDER DM TYPE II HYPERLIPIDEMIA HYPOGONADISM HX FRACTURE LEFT ANKLE AND BACK HYPERTENSION ALLERGIES PERCOCET: HIVES, THROAT SWELLING - ALLERGY SURGICAL HISTORY HERNIA REPAIR X 3 07/2011 FAMILY HISTORY FATHER: 42 YRS, CARBON MONOXIDE POISONING MOTHER: ALIVE, DM SIBLINGS: ALIVE, BROTHER # 1 CANCER UNKNOWN TYPE BROTHER # 2 CANCER UNKNOWN TYPE BROTHER # 3 GALLSTONES SON(S): ALIVE DAUGHTER(S): ALIVE 7 BROTHER(S) , 4 SISTER(S) . 1 SON(S) , 1 DAUGHTER(S) - HEALTHY. NO KNOWN FAMILY HISTORY OF ANY UROLOGICALLY RELATED DISEASES/CANCERS. SOCIAL HISTORY GENERAL: TOBACCO USE ARE YOU A:CURRENT SMOKER ARE YOU INTERESTED IN QUITTING?NOT READY TO QUIT COUNSELED THE PATIENT ON SMOKING EFFECTS, EDUCATION [id number]/29/2018 PATIENT COUNSELED ON THE DANGERS OF TOBACCO USE AND URGED TO QUIT:09/15/2018 SMOKING CESSATION INFORMATION GIVEN01/29/2019 LUNG CANCER SCREENING SMOKING STATUS:CURRENT SMOKER DISCUSSED CUTTING DOWN ALCOHOL SCREENING DID YOU HAVE A DRINK CONTAINING ALCOHOL IN THE PAST YEAR?NO POINTS0 INTERPRETATIONNEGATIVE RECREATIONAL DRUG USE DENIES. CAFFEINE 1-2/DAY. SEXUAL HX HAD SEX IN THE LAST 12 MONTHS (VAGINAL, ORAL, OR ANAL)?YES WITHWOMEN ONLY USE PROTECTION?NO HAVE YOU EVER HAD AN STD?NO BUDDHIST NO MOSQUE BELIEFS THAT WOULD IMPACT HEALTH CARE. LANGUAGE NEPALI. DOMESTIC VIOLENCE NONE. 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 DIET: REGULAR. EXERCISE: NO REGULAR EXERCISE. MARITAL STATUS: SINGLE. OTHERS AT HOME: DOMESTIC PARTNER. PAIN CLINIC PFS, CLERGY, PUBLIC HEALTH REFERRALS PFS REFERRAL NEEDED?NO CLERGY REFERRAL NEEDED?NO PUBLIC HEALTH REFERRAL NEEDED?NO HAS THE PATIENT BEEN EDUCATED REGARDING HIS/HER PLAN OF CARE?YES HAS THE PATIENT BEEN EDUCATED REGARDING PAIN, THE RISK FOR PAIN, THE IMPORTANCE OF EFFECTIVE PAIN MANAGEMENT, AND THE PAIN ASSESSMENT PROCESS?YES HOUSING: LIVING IN MOMS HOUSE. ADVANCE DIRECTIVE ADVANCE DIRECTIVE DISCUSSED WITH PATIENT:YES DECLINED INFORMATION REVIEWED WITH PATIENT 09/15/18 1027 JS. HOSPITALIZATION/MAJOR DIAGNOSTIC PROCEDURE FELL OUT OF TREE 35 FT DROP SURGICALY RELATED REVIEW OF SYSTEMS REVIEWED BY: PROVIDER: TRINI MARTINEZ . CONSTITUTIONAL: ANY CHANGE IN YOUR MEDICAL CONDITION? NO . CHILLS NO . FEVER NO . INFECTION: DO YOU HAVE NEW INFECTIONS? NO . DO YOU HAVE HISTORY OF MRSA? NO . MUSCULOSKELETAL: ANY NEW PATTERNS OF PAIN OR NUMBNESS? YES LOWER BCK . GASTROENTEROLOGY: ANY NEW CHANGE IN BOWEL CONTROL? NO . GENITOURINARY: ANY NEW CHANGE IN BLADDER CONTROL? NO . IS THERE A CHANCE YOU COULD BE ? NO . HEMATOLOGY/LYMPH: DO YOU TAKE ANY BLOOD THINNERS? (FOR EXAMPLE- COUMADIN, PLAVIX, AGGRENOX, PLATEL, PRADAXA, OR XARELTO) NO . WHEN WAS YOUR LAST DOSE? DATE: TIME: . NEUROLOGY: HAVE YOU FALLEN IN THE PAST 12 MONTHS? SATURDAY NIGHT FELT HIS BACK "POP" WENT TO HIS KNEES THEN WENT TO BED TUES HE WENT TO [facility] ER WHERE YOU GOT MEDS AND [facility] HAS NOT PICKED UP THE TRAMADOL PRESCRIPTION YET . ANY NEW EXTREMITY NUMBNESS OR WEAKNESS? NO . CARDIOLOGY: DO YOU HAVE A PACEMAKER OR DEFIBRILLATOR? NO . RESPIRATORY: HAVE YOU BEEN SICK IN THE PAST WEEK? NO . FEVER NO . FLU LIKE SYMPTOMS? NO . COUGH NO . INTEGUMENTARY: DO YOU HAVE ANY RASHES OR OPEN SORES? NO . ALLERGIC/IMMUNO: ARE YOU ALLERGIC TO IV DYE? NO . ANY NEW ALLERGIES? NO . PSYCHIATRIC: DO YOU HAVE THOUGHTS OF HURTING YOURSELF OR SOMEONE ELSE? NO . ARE YOU ABUSED, NEGLECTED, OR IN AN UNSAFE ENVIRONMENT? NO . ENDOCRINOLOGY: ARE YOU DIABETIC? YES NOT VERY CONTROLLED AND IS GETTING A REFERRAL FOR BETTER CONTROL SUGARS RUNNING "HIGH" . OTHER: DO YOU NEED ANY PRESCRIPTIONS? NO . IF YES, PLEASE LIST: ____ . ANY NEW PROBLEMS WITH YOUR MEDICATIONS? NO . WHEN DID YOU LAST EAT? ____ . WHEN DID YOU LAST DRINK? ____ . WHAT DID YOU LAST DRINK? ____ . NAME OF PERSON DRIVING YOU HOME? ____ . DO YOU HAVE ANY OTHER QUESTIONS OR CONCERNS NO . VITAL SIGNS WT 297.2 LBS, HT 68 IN, BMI 45.18 INDEX, BP 150/72 MM HG, HR 115 /MIN, RR 20 /MIN, TEMP 97.3 F, OXYGEN SAT % 94%, SAFE IN ENV? (Y/N) YES, NA INITIALS NE 09:17, REVIEWED BY: KG. EXAMINATION GENERAL EXAMINATION: GENERAL APPEARANCE: AWAKE,ALERT ,PLEAASANT . PSYCH AFFECT NORMAL . LUNGS: LUNG ALBERTO ARE CLEAR TO AUSCULTATION BILATERALLY. GOOD MOVEMENT OF AIR . HEART: S1, S2 IN A REGULAR RATE AND RHYTHM. NO SIGNIFICANT MURMURS, RUBS OR GALLOPS NOTED . LUMBAR SACRAL SPINE PALPATION: + FOR PAIN OVER L/S SPINE. + FOR PAIN OVER L/S PARASPINALS. NEUROLOGIC EXAM: NORMAL SENSATION LIGHT TOUCH BILAT. LOWER EXTREMITIES. ASSESSMENTS MYALGIA - M79.1 (PRIMARY) LUMBAGO OF MULTIPLE SITES IN SPINE WITH SCIATICA - M54.40 TREATMENT MYALGIA CONTINUE TIZANIDINE HCL TABLET, 4 MG, 1 TABLET NEEDED, ORALLY, THREE TIMES A DAY CONTINUE TRAMADOL HCL TABLET, 50 MG, 1-2 TABS, ORALLY, EVERY 6 HOURS PRN PAIN MDD=6 [facility] MRI SPINE, L.S. WITHOUT [id number] NOTES: ISTOP REGISTRY REVIEWED AND DEMONSTRATES COMPLLIANCE. , PATIENT WAS ADVISED TO START A WALKING PROGRAM TO STRENGTHEN LUMBAR PARASPINAL MUSCLES AND IMPROVE MOBILITY. THEY WERE ADVISED THAT THIS WILL IMPROVE WEIGHT LOSS AND ALSO DEPRESSION/FIBROMYALGIA SYMPTOMS. ADVISED TO WALK 10 MINUTES EVERY OTHER DAY ON A FLAT SURFACE. EMPHASIZED THE IMPORTANCE OF DOING THIS CONSISTANTLY AND NOT SPORATICALLY TO AVOID INJURY. STRONG ADVISED NOT TO DO MORE THAN 10 MINUTES EVERY OTHER DAY FOR THE FIRST 4 WEEKS.. PROCEDURE CODES FA211 ESTABILISHED PATIENT [facility] CHARGE DISPOSITION & COMMUNICATION FOLLOW UP 2 MONTHS ELECTRONICALLY SIGNED BY JUAN ESPARZA ON 02/12/2019 AT 04:27 PM EDT DISCLAIMER : THIS IS A VISIT SUMMARY EXTRACTED FROM THE [employer] CHART. IT IS NOT A COPY OF THE [employer] PROGRESS NOTE. LAZARO
== END ==
LOC: M PAIN 09:15
PROVIDERS: ATTEND Nurse Practitioner Family
DX: M79.18 Myalgia, other site (principal); M54.40 Lumbago with sciatica, unspecified side; J45.909 Unspecified asthma, uncomplicated; E11.9 Type 2 diabetes mellitus without complications; E78.5 Hyperlipidemia, unspecified; E29.1 Testicular hypofunction; I10 Essential (primary) hypertension; F17.210 Nicotine dependence, cigarettes, uncomplicated; Z87.81 Personal history of (healed) traumatic fracture; Z79.4 Long term (current) use of insulin; Z79.82 Long term (current) use of aspirin; Z79.891 Long term (current) use of opiate analgesic; Z79.899 Other long term (current) drug therapy; Z88.5 Allergy status to narcotic agent

== ENCOUNTER → 2019-03-31 | Outpatient (CLI) | payer MEDICARE, MEDICAID ==
[~2019-03-31] MED LIST changes: -VICO5TAB16 PO; +VICO5TAB17 PO
--- NOTE | 2019-04-18 01:48 | ECWPNPC ---
PATIENT NAME: TERESA MALIK : 1965 GENDER: MALE VISIT DATE: 03/31/2019 DISCHARGE DATE: 03/31/19 0954 VISIT LOCKED DATE TIME: PHYSICIAN: TRINI SHIPLEY RESOURCE: TRINI HSIPLEY REASON FOR APPOINTMENT 1. BACK PAIN HISTORY OF PRESENT ILLNESS HISTORY OF PRESENT ILLNESS: HERE FOR F/U OF CHRONIC LOW BACK PAIN.CURRENTLY USING TRAMADOL AND TIZANIDINE.USING 6 TABLETS PER DAY.DISCUSSED MEDICATION AND TREATMENT OPTIONS.NOT A CANDIDATE FOR OPIODS.RATING PAIN VAS 7/10.PAIN IS GENERALIZED BACK PAIN.HAS BEEN SEEN AT ER X2 SINCE LAST VISIT DUE TO INCREASE IN LBP.REVIEWED MRI L/S SPINE I ORDERED AT LAST VISIT.DISCUSSED TREATMENT OPTIONS.PATIENT IS RELUCTANT TO HAVE INJECTIONS. PAIN THE PATIENT DESCRIBES THE PAIN... THE PATIENT DESCRIBES THE PAIN... FALL RISK SCREENING: SCREENING :NO FALLS REPORTED IN THE LAST YEAR CURRENT MEDICATIONS TAKING ALBUTEROL SULFATE (2.5 MG/3ML) 0.083% NEBULIZATION SOLUTION 3 ML INHALATION THREE TIMES A DAY TAKING SIMVASTATIN 40 MG TABLET 1 TABLET IN THE EVENING ORALLY ONCE A DAY TAKING VENTOLIN HFA 108 (90 BASE) MCG/ACT AEROSOL SOLUTION 2 PUFFS INHALATION TWICE DAILY TAKING TRAZODONE HCL 100 MG TABLET 1 TABLET AT BEDTIME ORALLY ONCE A DAY TAKING BUSPIRONE HCL 10 MG TABLET 1 TABLET ORALLY TWICE A DAY TAKING ACTOS 30 MG TABLET 1 TABLET ORALLY ONCE A DAY TAKING LISINOPRIL 10 MG TABLET 1 TABLET ORALLY ONCE A DAY TAKING DICYCLOMINE HCL 20 MG TABLET 1 TABLET ORALLY FOUR TIMES A DAY TAKING HUMALOG KWIKPEN 100 UNIT/ML SOLUTION 10UNITS SUBCUTANEOUS BID TAKING LANTUS SOLOSTAR 100 UNIT/ML SOLUTION 70 UNITS SUBCUTANEOUS ONCE A DAY TAKING COLACE 100 MG CAPSULE 2 ORALLY BID TAKING CYMBALTA 60 MG CAPSULE DELAYED RELEASE PARTICLES 1 CAPSULE ORALLY ONCE A DAY TAKING GABAPENTIN 300 MG CAPSULE 1 CAPSULE ORALLY THREE TIMES A DAY TAKING BYDUREON 2MG/VIAL ONCE WEEKLY TAKING ADVAIR DISKUS 250-50 MCG/DOSE MISCELLANEOUS INHALATION TAKING SYMBICORT 80-4.5 MCG/ACT AEROSOL 2 PUFFS INHALATION TWICE A DAY TAKING ASPIRIN ADULT LOW STRENGTH 81 MG TABLET DELAYED RELEASE 1 TABLET ORALLY ONCE A DAY TAKING ACCU-CHEK PEDRO PLUS STRIP DIRECTED IN VITRO TAKING ALCOHOL PREP 70 % PAD DIRECTED TAKING BD PEN MINI ------ MISCELLANEOUS DIRECTED FOR USE IN GIVEN INSULIN DAILY TAKING TIZANIDINE HCL 4 MG TABLET 1 TABLET NEEDED ORALLY THREE TIMES A DAY TAKING TRAMADOL HCL 50 MG TABLET 1-2 TABS ORALLY EVERY 6 HOURS PRN PAIN MDD=6 TAKING ANDROGEL 25 MG/2.5GM (1%) GEL 2 PACKETS TO SKIN IN THE MORNING TRANSDERMAL ONCE A DAY, CODE F TAKING METFORMIN HCL ER (OSM) 500 MG TABLET EXTENDED RELEASE 24 HOUR 2 TABLET WITH EVENING MEAL ORALLY BID NOT-TAKING METFORMIN HCL 1000 MG (OSM) TABLET EXTENDED RELEASE 24 HOUR 1 TABLET WITH EVENING MEAL ORALLY BID MEDICATION LIST REVIEWED AND RECONCILED WITH THE PATIENT PAST MEDICAL HISTORY ASTHMA SLEEP DISORDER DM TYPE II HYPERLIPIDEMIA HYPOGONADISM HX FRACTURE LEFT ANKLE AND BACK HYPERTENSION ALLERGIES PERCOCET: HIVES, THROAT SWELLING - ALLERGY SURGICAL HISTORY HERNIA REPAIR X 3 07/2011 FAMILY HISTORY FATHER: 42 YRS, CARBON MONOXIDE POISONING MOTHER: ALIVE, DM SIBLINGS: ALIVE, BROTHER # 1 CANCER UNKNOWN TYPE BROTHER # 2 CANCER UNKNOWN TYPE BROTHER # 3 GALLSTONES SON(S): ALIVE DAUGHTER(S): ALIVE 7 BROTHER(S) , 4 SISTER(S) . 1 SON(S) , 1 DAUGHTER(S) - HEALTHY. NO KNOWN FAMILY HISTORY OF ANY UROLOGICALLY RELATED DISEASES/CANCERS. SOCIAL HISTORY GENERAL: TOBACCO USE ARE YOU A:CURRENT SMOKER ARE YOU INTERESTED IN QUITTING?NOT READY TO QUIT PATIENT COUNSELED ON THE DANGERS OF TOBACCO USE AND URGED TO QUIT:09/15/2018 COUNSELED THE PATIENT ON SMOKING EFFECTS, EDUCATION [id number]/29/2018 SMOKING CESSATION INFORMATION GIVEN01/29/2019 OTHERS AT HOME: DOMESTIC PARTNER. HOUSING: LIVING IN MOMS HOUSE. DIET: REGULAR. LANGUAGE ZAMBIAN. DOMESTIC VIOLENCE NONE. RECREATIONAL DRUG USE DENIES. EXERCISE: NO REGULAR EXERCISE. LUNG CANCER SCREENING SMOKING STATUS:CURRENT SMOKER DISCUSSED CUTTING DOWN PAIN CLINIC PFS, CLERGY, PUBLIC HEALTH REFERRALS PFS REFERRAL NEEDED?NO CLERGY REFERRAL NEEDED?NO PUBLIC HEALTH REFERRAL NEEDED?NO HAS THE PATIENT BEEN EDUCATED REGARDING HIS/HER PLAN OF CARE?YES HAS THE PATIENT BEEN EDUCATED REGARDING PAIN, THE RISK FOR PAIN, THE IMPORTANCE OF EFFECTIVE PAIN MANAGEMENT, AND THE PAIN ASSESSMENT PROCESS?YES LATEX QUESTIONNAIRE LATEX ALLERGY : HAVE YOU EVER DEVELOPED ANY TYPE OF REACTION AFTER HANDLING LATEX PRODUCTS SUCH RUBBER GLOVES, CONDOMS, DIAPHRAGMS, BALLOONS, SOCKS, OR UNDERWEAR?NO LATEX ALLERGY : HAVE YOU EVER DEVELOPED ANY TYPE OF REACTION DURING OR AFTER DENTAL APPOINTMENT, VAGINAL/RECTAL EXAMINATION, SURGICAL PROCEDURE, OR ANY OTHER EXPOSURE?NO LATEX RISK : HAVE YOU EVER HAD ANY DIFFICULTY BREATHING OR HIVES AFTER EATING OR HANDLING ANY FRUITS, OR VEGETABLES; SUCH KIWI, BANANAS, STONE FRUITS, OR CHESTNUTSNO LATEX RISK : DO YOU HAVE A PREVIOUS PERSONAL HISTORY OF MORE THAN NINE SURGERIES, SPINA BIFIDA, OR REPEATED CATHERTIZATIONS? NO LATEX RISK : ARE YOU FREQUENTLY EXPOSED TO LATEX PRODUCTS IN YOUR OCCUPATION?NO DATE ASKED : 03/31/2019 CAFFEINE 1-2/DAY. ADVANCE DIRECTIVE ADVANCE DIRECTIVE DISCUSSED WITH PATIENT:YES DECLINED INFORMATION AND ASSISTANCE AT THIS TIME. 03/31/19 JAINISM NO HOLINESS BELIEFS THAT WOULD IMPACT HEALTH CARE. MARITAL STATUS: SINGLE. 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 SEXUAL HX HAD SEX IN THE LAST 12 MONTHS (VAGINAL, ORAL, OR ANAL)?: YES, WITH: WOMEN ONLY, USE PROTECTION?: NO, HAVE YOU EVER HAD AN STD?: NO. REVIEWED WITH PATIENT 09/15/18 1027 JSREVIEWED WITH PT 03/31/19 0858 BV. HOSPITALIZATION/MAJOR DIAGNOSTIC PROCEDURE FELL OUT OF TREE 35 FT DROP SURGICALY RELATED REVIEW OF SYSTEMS REVIEWED BY: PROVIDER: TRINI MARTINEZ . CONSTITUTIONAL: ANY CHANGE IN YOUR MEDICAL CONDITION? NO . CHILLS NO . FEVER NO . INFECTION: DO YOU HAVE NEW INFECTIONS? NO . DO YOU HAVE HISTORY OF MRSA? NO . MUSCULOSKELETAL: ANY NEW PATTERNS OF PAIN OR NUMBNESS? NO . GASTROENTEROLOGY: ANY NEW CHANGE IN BOWEL CONTROL? NO . GENITOURINARY: ANY NEW CHANGE IN BLADDER CONTROL? NO . IS THERE A CHANCE YOU COULD BE ? NO . HEMATOLOGY/LYMPH: DO YOU TAKE ANY BLOOD THINNERS? (FOR EXAMPLE- COUMADIN, PLAVIX, AGGRENOX, PLATEL, PRADAXA, OR XARELTO) NO . WHEN WAS YOUR LAST DOSE? DATE: TIME: . NEUROLOGY: HAVE YOU FALLEN IN THE PAST 12 MONTHS? NO . ANY NEW EXTREMITY NUMBNESS OR WEAKNESS? NO . CARDIOLOGY: DO YOU HAVE A PACEMAKER OR DEFIBRILLATOR? NO . RESPIRATORY: HAVE YOU BEEN SICK IN THE PAST WEEK? NO . FEVER NO . FLU LIKE SYMPTOMS? NO . COUGH NO . INTEGUMENTARY: DO YOU HAVE ANY RASHES OR OPEN SORES? NO . ALLERGIC/IMMUNO: ARE YOU ALLERGIC TO IV DYE? NO . ANY NEW ALLERGIES? NO . PSYCHIATRIC: DO YOU HAVE THOUGHTS OF HURTING YOURSELF OR SOMEONE ELSE? NO . ARE YOU ABUSED, NEGLECTED, OR IN AN UNSAFE ENVIRONMENT? NO . ENDOCRINOLOGY: ARE YOU DIABETIC? YES . OTHER: DO YOU NEED ANY PRESCRIPTIONS? YES, TRAMADOL . IF YES, PLEASE LIST: ____ . ANY NEW PROBLEMS WITH YOUR MEDICATIONS? NO . WHEN DID YOU LAST EAT? ____ . WHEN DID YOU LAST DRINK? ____ . WHAT DID YOU LAST DRINK? ____ . NAME OF PERSON DRIVING YOU HOME? ____ . DO YOU HAVE ANY OTHER QUESTIONS OR CONCERNS YES, PT WOULD LIKE TO KNOW IF WE WERE ABLE TO ORDER HIM A BACK BRACE . VITAL SIGNS WT 299.8 LBS, HT 68 IN, BMI 45.58 INDEX, BP 163/76 MM HG, HR 62 /MIN, RR 20 /MIN, TEMP 97.6 F, OXYGEN SAT % 95, NA INITIALS MP 0850, REVIEWED BY: BV. EXAMINATION GENERAL EXAMINATION: GENERAL APPEARANCE: AWAKE,ALERT ,PLEAASANT . PSYCH AFFECT NORMAL . LUNGS: LUNG ALBERTO ARE CLEAR TO AUSCULTATION BILATERALLY. GOOD MOVEMENT OF AIR . HEART: S1, S2 IN A REGULAR RATE AND RHYTHM. NO SIGNIFICANT MURMURS, RUBS OR GALLOPS NOTED . DIAGNOSTIC TESTS REVIEWED MRI L/S SPINE-01/2019. ASSESSMENTS BACK PAIN - M54.9 (PRIMARY) MYALGIA - M79.1 TREATMENT BACK PAIN CONTINUE GABAPENTIN CAPSULE, 300 MG, 1 CAPSULE, ORALLY, THREE TIMES A DAY MYALGIA REFILL TRAMADOL HCL TABLET, 50 MG, 1-2 TABS, ORALLY, EVERY 6 HOURS PRN PAIN MDD=6, 30 DAY(S), 180, REFILLS 2 NOTES: ISTOP REGISTRY REVIEWED AND DEMONSTRATES COMPLLIANCE. BRINGS IN MEDICATIONS WHICH IS APPROPRIATE FOR WHAT WAS DISPENSED. RECENT URINE TOXICOLOGY REVIEWED. NO UNAUTHORIZED MEDICATIONS. NO ILLICIT SUBSTANCES AND PRESCRIBED MEDICATIONS WERE PRESENT. URINE TOX TODAY, RISKS AND BENEFITS OF NARCOTIC/OPIOD MEDICATIONS WERE REVIEWED WITH PATIENT - THIS INCLUDES BUT IS NOT LIMITED TO RISK OF DEPENDANCE/DEVELOPMENT OF ADDICTION, MOOD DISTURBANCE AND DEPRESSION, OSTEOPOROSIS, HORMONAL AND LABIDAL CHANGES, RESPIRATORY DEPRESSION AND . PATIENT IS ADVISED NOT TO DRIVE OR DRINK ALCOHOL WHILE ON THESE MEDICATIONS. OTHERS CONTINUE COLACE CAPSULE, 100 MG, 2, ORALLY, BID CONTINUE CYMBALTA CAPSULE DELAYED RELEASE PARTICLES, 60 MG, 1 CAPSULE, ORALLY, ONCE A DAY START ROBAXIN-750 TABLET, 750 MG, 1 TABLET, ORALLY, Q8H PRN MDD3, 30 DAY(S), 90, REFILLS 2 PROCEDURE CODES FA211 ESTABILISHED PATIENT [facility] CHARGE DISPOSITION & COMMUNICATION FOLLOW UP 3 MONTHS ELECTRONICALLY SIGNED BY JUAN ESPARZA ON 04/16/2019 AT 01:02 PM EDT DISCLAIMER : THIS IS A VISIT SUMMARY EXTRACTED FROM THE [employer] CHART. IT IS NOT A COPY OF THE [employer] PROGRESS NOTE. LAZARO
== END ==
LOC: M PAIN 08:30
PROVIDERS: ATTEND Nurse Practitioner Family
DX: M54.9 Dorsalgia, unspecified (principal); M79.18 Myalgia, other site; J45.909 Unspecified asthma, uncomplicated; E11.9 Type 2 diabetes mellitus without complications; E78.5 Hyperlipidemia, unspecified; I10 Essential (primary) hypertension; F17.210 Nicotine dependence, cigarettes, uncomplicated; Z88.5 Allergy status to narcotic agent; E66.01 Morbid (severe) obesity due to excess calories; Z68.42 Body mass index [BMI] 45.0-49.9, adult; Z79.4 Long term (current) use of insulin; Z79.82 Long term (current) use of aspirin; Z79.899 Other long term (current) drug therapy

== ENCOUNTER → 2019-07-01 | Outpatient (CLI) | payer MEDICARE, MEDICAID | LOC: M PAIN 09:15 | PROVIDERS: ATTEND Nurse Practitioner Family | DX: M54.9 Dorsalgia, unspecified (principal); G89.29 Other chronic pain; J45.909 Unspecified asthma, uncomplicated; E11.9 Type 2 diabetes mellitus without complications; E78.5 Hyperlipidemia, unspecified; I10 Essential (primary) hypertension; F17.210 Nicotine dependence, cigarettes, uncomplicated; Z88.5 Allergy status to narcotic agent; E66.01 Morbid (severe) obesity due to excess calories; Z68.41 Body mass index [BMI] 40.0-44.9, adult; Z79.4 Long term (current) use of insulin; Z79.82 Long term (current) use of aspirin; Z79.891 Long term (current) use of opiate analgesic; Z79.899 Other long term (current) drug therapy ==

== ENCOUNTER → 2019-09-08 | Outpatient (REF) | payer MEDICARE, MEDICAID ==
[2019-09-08 14:54] LABS: APPEARANCE, URINE CLEAR (CLEAR); BACTERIA, URINE AUTO NEGATIVE (NEGATIVE); BILIRUBIN, URINE AUTO NEGATIVE (NEGATIVE); BLOOD, URINE BLOOD NEGATIVE (NEGATIVE); COLOR, URINE STRAW (YELLOW); GLUCOSE, URINE (UA) AUTO 3+ mg/dL (NEGATIVE); KETONE, URINE AUTO NEGATIVE (NEGATIVE); LEUKOCYTE ESTERASE, URINE AUTO NEGATIVE (NEGATIVE); NITRITE, URINE AUTO NEGATIVE (NEGATIVE); PROTEIN, URINE AUTO NEGATIVE (NEGATIVE); RBC, URINE AUTO 0 /HPF (0-3); SPECIFIC GRAVITY URINE AUTO 1.022 (1.002-1.035); SQUAMOUS EPITHELIAL CELL UR AU 0 /HPF (0-6); UROBILINOGEN, URINE AUTO 0.2 mg/dL (0.0-2.0); WBC, URINE AUTO 1 /HPF (0-3)
== END ==
LOC: M SMT 13:38
PROVIDERS: ATTEND Nurse Practitioner Women's Health
DX: R82.90 Unspecified abnormal findings in urine (principal)
CPT/HCPCS: 81001; 87086; G0463

== ENCOUNTER → 2019-10-01 | Outpatient (CLI) | payer MEDICARE, MEDICAID ==
[~2019-10-01] MED LIST changes: -SIMV40TA2 PO; +SIMV40TA20 PO
--- NOTE | 2019-10-20 08:18 | ECWPNPC ---
PATIENT NAME: TERESA MALIK : 1965 GENDER: MALE VISIT DATE: 10/01/2019 DISCHARGE DATE: 10/01/19 0942 VISIT LOCKED DATE TIME: PHYSICIAN: TRINI SHIPLEY RESOURCE: TRINI SHIPLEY REASON FOR APPOINTMENT 1. BACK PAIN HISTORY OF PRESENT ILLNESS HISTORY OF PRESENT ILLNESS: HERE FOR F/U OF CHRONIC GENERALIZED BACK PAIN.REPORTING AN INCREASE IN PAIN OVER THE PAST FEW MONTHS.RATING PAIN VAS 9/10.USING TRAMADOL AND ROBAXIN PRN WITH SOME IMPROVEMENT.DISCUSSED STAR REFERRAL.HE IS NOT INTERESTED IN INJECTION THERAPY. PAIN THE PATIENT DESCRIBES THE PAIN... FALL RISK SCREENING: SCREENING :NO FALLS REPORTED IN THE LAST YEAR CURRENT MEDICATIONS TAKING ALBUTEROL SULFATE (2.5 MG/3ML) 0.083% NEBULIZATION SOLUTION 3 ML INHALATION THREE TIMES A DAY TAKING SIMVASTATIN 40 MG TABLET 1 TABLET IN THE EVENING ORALLY ONCE A DAY TAKING VENTOLIN HFA 108 (90 BASE) MCG/ACT AEROSOL SOLUTION 2 PUFFS INHALATION TWICE DAILY TAKING TRAZODONE HCL 100 MG TABLET 1 TABLET AT BEDTIME ORALLY ONCE A DAY TAKING BUSPIRONE HCL 10 MG TABLET 1 TABLET ORALLY TWICE A DAY TAKING ACTOS 30 MG TABLET 1 TABLET ORALLY ONCE A DAY TAKING LISINOPRIL 10 MG TABLET 1 TABLET ORALLY ONCE A DAY TAKING DICYCLOMINE HCL 20 MG TABLET 1 TABLET ORALLY FOUR TIMES A DAY TAKING HUMALOG KWIKPEN 100 UNIT/ML SOLUTION 20 UNITS SUBCUTANEOUS BID TAKING LANTUS SOLOSTAR 100 UNIT/ML SOLUTION 80 UNITS SUBCUTANEOUS ONCE A DAY TAKING BYDUREON 2MG/VIAL ONCE WEEKLY TAKING ADVAIR DISKUS 250-50 MCG/DOSE MISCELLANEOUS INHALATION TAKING SYMBICORT 80-4.5 MCG/ACT AEROSOL 2 PUFFS INHALATION TWICE A DAY TAKING ASPIRIN ADULT LOW STRENGTH 81 MG TABLET DELAYED RELEASE 1 TABLET ORALLY ONCE A DAY TAKING ACCU-CHEK PEDRO PLUS STRIP DIRECTED IN VITRO TAKING ALCOHOL PREP 70 % PAD DIRECTED TAKING BD PEN MINI ------ MISCELLANEOUS DIRECTED FOR USE IN GIVEN INSULIN DAILY TAKING TIZANIDINE HCL 4 MG TABLET 1 TABLET NEEDED ORALLY THREE TIMES A DAY TAKING METFORMIN HCL ER (OSM) 500 MG TABLET EXTENDED RELEASE 24 HOUR 2 TABLET WITH EVENING MEAL ORALLY BID TAKING COLACE 100 MG CAPSULE 2 ORALLY BID TAKING CYMBALTA 60 MG CAPSULE DELAYED RELEASE PARTICLES 1 CAPSULE ORALLY ONCE A DAY TAKING GABAPENTIN 300 MG CAPSULE 1 CAPSULE ORALLY THREE TIMES A DAY TAKING ROBAXIN-750 750 MG TABLET 1 TABLET ORALLY Q8H PRN MDD3 TAKING TRAMADOL HCL 50 MG TABLET 1-2 TABS ORALLY EVERY 6 HOURS PRN PAIN MDD=6 TAKING ANDROGEL 25 MG/2.5GM (1%) GEL 2 PACKETS TO SKIN IN THE MORNING AND 2 AT NIGHT TRANSDERMAL BID, CODE F NOT-TAKING METFORMIN HCL 1000 MG (OSM) TABLET EXTENDED RELEASE 24 HOUR 1 TABLET WITH EVENING MEAL ORALLY BID MEDICATION LIST REVIEWED AND RECONCILED WITH THE PATIENT PAST MEDICAL HISTORY ASTHMA SLEEP DISORDER DM TYPE II HYPERLIPIDEMIA HYPOGONADISM HX FRACTURE LEFT ANKLE AND BACK HYPERTENSION ALLERGIES N.K.D.A. SURGICAL HISTORY HERNIA SURGERY 2009/2010/2011 FAMILY HISTORY FATHER: DIAGNOSED WITH DIABETES MOTHER: DIABETES SIBLINGS: OTHER MALIGNANT NEOPLASM OF UNSPECIFIED SITE NO KNOWN FAMILY HISTORY OF ANY UROLOGICALLY RELATED DISEASES/CANCERS. SOCIAL HISTORY GENERAL: TOBACCO USE ARE YOU A:CURRENT EVERY DAY SMOKER SMOKING CESSATION INFORMATION GIVEN10/01/2019 PAIN CLINIC PFS, CLERGY, PUBLIC HEALTH REFERRALS HAS THE PATIENT BEEN EDUCATED REGARDING HIS/HER PLAN OF CARE?YES HAS THE PATIENT BEEN EDUCATED REGARDING PAIN, THE RISK FOR PAIN, THE IMPORTANCE OF EFFECTIVE PAIN MANAGEMENT, AND THE PAIN ASSESSMENT PROCESS?YES LATEX QUESTIONNAIRE LATEX ALLERGY : HAVE YOU EVER DEVELOPED ANY TYPE OF REACTION AFTER HANDLING LATEX PRODUCTS SUCH RUBBER GLOVES, CONDOMS, DIAPHRAGMS, BALLOONS, SOCKS, OR UNDERWEAR?NO LATEX ALLERGY : HAVE YOU EVER DEVELOPED ANY TYPE OF REACTION DURING OR AFTER DENTAL APPOINTMENT, VAGINAL/RECTAL EXAMINATION, SURGICAL PROCEDURE, OR ANY OTHER EXPOSURE?NO LATEX RISK : HAVE YOU EVER HAD ANY DIFFICULTY BREATHING OR HIVES AFTER EATING OR HANDLING ANY FRUITS, OR VEGETABLES; SUCH KIWI, BANANAS, STONE FRUITS, OR CHESTNUTSNO LATEX RISK : DO YOU HAVE A PREVIOUS PERSONAL HISTORY OF MORE THAN NINE SURGERIES, SPINA BIFIDA, OR REPEATED CATHERIZATIONS? NO LATEX RISK : ARE YOU FREQUENTLY EXPOSED TO LATEX PRODUCTS IN YOUR OCCUPATION?NO DATE ASKED : 10/01/2019 ADVANCE DIRECTIVE ADVANCE DIRECTIVE DISCUSSED WITH PATIENT:YES PT STATES HE DOES NOT HAVE A HCP AND DECLINES INFO AT THIS TIME EPISCOPALIAN EPISCOPALIAN NO ORTHODOXY BELIEFS THAT WOULD IMPACT HEALTH CARE. LANGUAGE LANGUAGES SPOKEN:UKRAINIAN ALCOHOL SCREENING DID YOU HAVE A DRINK CONTAINING ALCOHOL IN THE PAST YEAR?NO POINTS0 INTERPRETATIONNEGATIVE RECREATIONAL DRUG USE DRUG USE?NO LEARNING BARRIERS / SPECIAL NEEDS BARRIERS TO LEARNING?NO VISION IMPAIRED?NO COGNITIVELY IMPAIRED?NO READINESS TO LEARN?YES REVIEWED WITH PATIENT 09/15/18 1027 JSREVIEWED WITH PT 03/31/19 0858 BVREVIEWED WITH PATIENT 07/01/19 NLJREVIEWED WITH PATIENT 10/01/19 0910 BV. HOSPITALIZATION/MAJOR DIAGNOSTIC PROCEDURE SEE SURGERIES ABOVE REVIEW OF SYSTEMS REVIEWED BY: PROVIDER: TRINI MARTINEZ . CONSTITUTIONAL: ANY CHANGE IN YOUR MEDICAL CONDITION? NO . CHILLS NO . FEVER NO . INFECTION: DO YOU HAVE NEW INFECTIONS? NO . DO YOU HAVE HISTORY OF MRSA? NO . MUSCULOSKELETAL: ANY NEW PATTERNS OF PAIN OR NUMBNESS? NO . GASTROENTEROLOGY: ANY NEW CHANGE IN BOWEL CONTROL? NO . GENITOURINARY: ANY NEW CHANGE IN BLADDER CONTROL? NO . IS THERE A CHANCE YOU COULD BE ? NO . HEMATOLOGY/LYMPH: DO YOU TAKE ANY BLOOD THINNERS? (FOR EXAMPLE- COUMADIN, PLAVIX, AGGRENOX, PLATEL, PRADAXA, OR XARELTO) NO . WHEN WAS YOUR LAST DOSE? DATE: TIME: . NEUROLOGY: HAVE YOU FALLEN IN THE PAST 12 MONTHS? NO . ANY NEW EXTREMITY NUMBNESS OR WEAKNESS? NO . CARDIOLOGY: DO YOU HAVE A PACEMAKER OR DEFIBRILLATOR? NO . RESPIRATORY: HAVE YOU BEEN SICK IN THE PAST WEEK? NO . FEVER NO . FLU LIKE SYMPTOMS? NO . COUGH NO . INTEGUMENTARY: DO YOU HAVE ANY RASHES OR OPEN SORES? NO . ALLERGIC/IMMUNO: ARE YOU ALLERGIC TO IV DYE? NO . ANY NEW ALLERGIES? NO . PSYCHIATRIC: DO YOU HAVE THOUGHTS OF HURTING YOURSELF OR SOMEONE ELSE? NO . ARE YOU ABUSED, NEGLECTED, OR IN AN UNSAFE ENVIRONMENT? NO . ENDOCRINOLOGY: ARE YOU DIABETIC? YES . OTHER: DO YOU NEED ANY PRESCRIPTIONS? NO . IF YES, PLEASE LIST: ____ . ANY NEW PROBLEMS WITH YOUR MEDICATIONS? NO . WHEN DID YOU LAST EAT? ____ . WHEN DID YOU LAST DRINK? ____ . WHAT DID YOU LAST DRINK? ____ . NAME OF PERSON DRIVING YOU HOME? ____ . DO YOU HAVE ANY OTHER QUESTIONS OR CONCERNS NO . VITAL SIGNS WT 289 LBS, HT 68 IN, BMI 43.94 INDEX, BP 152/74 MM HG, HR 91 /MIN, RR 20 /MIN, TEMP 97.5 F, OXYGEN SAT % 96%, NA INITIALS SC 09:16. EXAMINATION GENERAL EXAMINATION: GENERAL AWAKE,ALERT ,PLEAASANT . PSYCH AFFECT NORMAL . LUNGS: LUNG ALBERTO ARE CLEAR TO AUSCULTATION BILATERALLY. GOOD MOVEMENT OF AIR . HEART: S1, S2 IN A REGULAR RATE AND RHYTHM. NO SIGNIFICANT MURMURS, RUBS OR GALLOPS NOTED . DIAGNOSTIC TESTS REVIEWED MRI L/S SPINE-01/2019. ASSESSMENTS BACK PAIN - M54.9 (PRIMARY) TREATMENT BACK PAIN CONTINUE ROBAXIN-750 TABLET, 750 MG, 1 TABLET, ORALLY, Q8H PRN MDD3 CONTINUE TRAMADOL HCL TABLET, 50 MG, 1-2 TABS, ORALLY, EVERY 6 HOURS PRN PAIN MDD=6 NOTES: ISTOP REGISTRY REVIEWED AND DEMONSTRATES COMPLLIANCE. BRINGS IN MEDICATIONS WHICH IS APPROPRIATE FOR WHAT WAS DISPENSED. RECENT URINE TOXICOLOGY REVIEWED. NO UNAUTHORIZED MEDICATIONS. NO ILLICIT SUBSTANCES AND PRESCRIBED MEDICATIONS WERE PRESENT. URINE TOX TODAY, RISKS OF NARCOTIC/OPIOD MEDICATIONS INCLUDES BUT IS NOT LIMITED TO RISK OF DEPENDANCE/DEVELOPMENT OF ADDICTION, MOOD DISTURBANCE AND DEPRESSION, OSTEOPOROSIS, HORMONAL AND LABIDAL CHANGES, RESPIRATORY DEPRESSION AND . PATIENT IS ADVISED NOT TO DRIVE OR DRINK ALCOHOL WHILE ON THESE MEDICATIONS. REFERRAL TO:[facility] [place] [facility] REASON:CHRONIC GENERALIZED JOINT PAIN DISPOSITION & COMMUNICATION FOLLOW UP REFER TO STAR ELECTRONICALLY SIGNED BY JUAN ESPARZA ON 10/19/2019 AT 08:44 AM EST DISCLAIMER : THIS IS A VISIT SUMMARY EXTRACTED FROM THE [employer] CHART. IT IS NOT A COPY OF THE [employer] PROGRESS NOTE. MTDAundrea
== END ==
LOC: M PAIN 08:45
PROVIDERS: ATTEND Nurse Practitioner Family
DX: M54.9 Dorsalgia, unspecified (principal); G89.29 Other chronic pain; J45.909 Unspecified asthma, uncomplicated; E11.9 Type 2 diabetes mellitus without complications; E78.5 Hyperlipidemia, unspecified; I10 Essential (primary) hypertension; F17.210 Nicotine dependence, cigarettes, uncomplicated; E66.01 Morbid (severe) obesity due to excess calories; Z68.41 Body mass index [BMI] 40.0-44.9, adult; Z79.4 Long term (current) use of insulin; Z79.82 Long term (current) use of aspirin; Z79.891 Long term (current) use of opiate analgesic; Z79.899 Other long term (current) drug therapy

== ENCOUNTER → 2020-11-15 | Outpatient (REF) | payer OTHER, MEDICAID ==
[~2020-11-15] MED LIST changes: +CYCL-707 PO; -CYCL10TA PO; -TRAZ-163 PO; +TRAZ-257 PO
[2020-11-15 17:48] LABS: CREATININE, URINE 65.1 MG/DL; MALB URINE SIEMENS 8.5 MG/L
== END ==
LOC: M LAB REF 16:46
PROVIDERS: ATTEND Internal Medicine Endocrinology, Diabetes & Metabolism
DX: E11.65 Type 2 diabetes mellitus with hyperglycemia (principal)

== ENCOUNTER 2023-08-23 14:03 | Inpatient (IN) | payer MEDICAID, MEDICARE, OTHER ==
[~2023-08-23] VITALS: Ht 172.7 cm; Wt 101.8 kg
[~2023-08-23 14:03] MED LIST changes: -CYMB60CA3 PO; +CYMB60CA4 PO; -DICY20TA11 PO; +DICY20TA20 PO; -LISI-542 PO; +LISI5TAB11 PO
[2023-08-23] MEDS ORDERED: NS 1,000 ML IV ONE (16:55)
[2023-08-23] MEDS ORDERED: IPRATROPIUM 0.5MG/ALBUTEROL 2.5MG INH SOL UD 3ML (DUONEB) NEB ONE (16:55)
[2023-08-23] MEDS ORDERED: methylPREDNISolone 125MG 2ML VIAL IV ONE (16:55)
[2023-08-23 17:28] LABS: BASO # 0.1 10^3/uL (0.0-0.2); BASO % 0.5 % (0.0-1.0); EOS # 0.1 10^3/uL (0.0-0.5); EOS % 0.4 % (0.0-3.0); HEMATOCRIT 41.4 % (42.0-52.0); HEMOGLOBIN 14.3 g/dl (13.5-17.5); LYMPH # 3.2 10^3/uL (1.5-5.0); LYMPH % 14.2 % (24.0-44.0); MEAN CORPUSCULAR HEMOGLOBIN 30.7 pg (27.0-33.0); MEAN CORPUSCULAR HGB CONC 34.5 g/dl (32.0-36.5); MEAN CORPUSCULAR VOLUME 88.8 fl (80.0-96.0); MONO # 1.4 10^3/uL (0.0-0.8); MONO % 6.1 % (2.0-8.0); NEUTROPHILS # 17.5 10^3/uL (1.5-8.5); NEUTROPHILS % 78.3 % (36.0-66.0); PLATELET COUNT, AUTOMATED 271 10^3/uL (150-450); RED BLOOD COUNT 4.66 10^6/uL (4.30-6.10); WHITE BLOOD COUNT 22.3 10^3/uL (4.0-10.0)
[2023-08-23 17:53] LABS: ALBUMIN 3.9 G/DL (3.2-5.2); ALKALINE PHOSPHATASE 67 U/L (46-116); ALT/SGPT 18 U/L (7.0-40); AST/SGOT 18 U/L (<34); BILIRUBIN,DIRECT 0.2 MG/DL (<0.4); BILIRUBIN,TOTAL 0.6 MG/DL (0.3-1.2); BLOOD UREA NITROGEN 16 MG/DL (9-23); CALCIUM LEVEL 9.3 MG/DL (8.5-10.1); CARBON DIOXIDE LEVEL 23 MMOL/L (20-31); CHLORIDE LEVEL 109 MMOL/L (98-107); CK-MB VALUE MASS 1.3 NG/ML (<3.6); CREATININE FOR GFR 0.88 MG/DL (0.70-1.30); GLOMERULAR FILTRATION RATE > 60.0 (>56); GLUCOSE, FASTING 82 MG/DL (60-100); SODIUM LEVEL 138 MMOL/L (136-145); TOTAL PROTEIN 6.9 G/DL (5.7-8.2)
[2023-08-23 17:56] LABS: CPK CREATINE PHOSPHOKINASE 125 U/L (46-171); MB/CK RELATIVE INDEX 1.04 (< OR =4)
[2023-08-23 18:10] LABS: INR 1.06; PROTHROMBIN TIME 13.5 SECONDS (12.5-14.5)
[2023-08-23 18:12] LABS: D-DIMER QUANT < 0.27 ug/mL (<0.5)
[2023-08-23] MEDS ORDERED: ISOVUE-370 76% 100ML VIAL As Ordered ONE (20:57)
[2023-08-23 21:20] LABS: PROCALCITONIN 0.04 ng/ml
[2023-08-23] MEDS ORDERED: PIPERACILLIN/TAZOBACTAM SOD 4.5 GM in D5W MINI-BAG PLUS 50 ML IV ONE (23:50)
[2023-08-24] MEDS ORDERED: ALBUTEROL SULFATE 2.5MG/0.5ML INH NEB SOLN NEB PRN (01:30)
[2023-08-24] MEDS ORDERED: GLUCAGON INJ 1MG VIAL SC PRN (01:30)
[2023-08-24] MEDS ORDERED: GLUCOSE 4GM CHEW TABLET PO PRN (01:30)
[2023-08-24] MEDS ORDERED: DEXTROSE 50% 50ML SYRINGE IV PRN (01:30)
[2023-08-24] MEDS ORDERED: SYMB80INH INH ×2 (01:46→11:29)
[2023-08-24] MEDS ORDERED: METF10004 PO (01:46)
[2023-08-24] MEDS ORDERED: LISI10TA22 PO (01:46)
[2023-08-24] MEDS ORDERED: VENTAER INH (01:46)
[2023-08-24] MEDS ORDERED: IPRA0.00 INH ×2 (01:46→11:26)
[2023-08-24] MEDS ORDERED: HOME MED LIST COMPLETE! XX SCH (01:50)
[2023-08-24] MEDS ORDERED: traZODone 100 MG TAB PO PRN (02:20)
[2023-08-24] MEDS: methylPREDNISolone 40MG 1ML VIAL IV SCH ×2 (02:43→09:46)
[2023-08-24] MEDS: IPRATROPIUM 0.5MG/ALBUTEROL 2.5MG INH SOL UD 3ML (DUONEB) NEB SCH ×2 (03:02→09:09)
[2023-08-24] MEDS ORDERED: PIPERACILLIN/TAZOBACTAM SOD 4.5 GM in D5W MINI-BAG PLUS 50 ML IV SCH (06:00)
[2023-08-24] MEDS ORDERED: HEPARIN SOD (PORCINE) 5000UNITS/ML 1ML VIAL/SYRINGE SC SCH (06:00)
[2023-08-24] MEDS ORDERED: INSULIN LISPRO (NovoLOG) PER UNIT SC SCH ×2 (07:30→21:00)
[2023-08-24] MEDS: SYMBICORT 80/4.5MCG INHALER 6GM INH SCH ×2 (08:00→09:09)
[2023-08-24] MEDS ORDERED: LEVEMIR (INSULIN DETEMIR) 1 UNITS/0.01ML SC SCH (09:00)
[2023-08-24] MEDS ORDERED: busPIRone 10 MG TAB PO SCH (09:00)
[2023-08-24] MEDS ORDERED: DULoxetine 30MG CAPSULE (CYMBALTA) PO SCH (09:00)
[2023-08-24] MEDS ORDERED: SIMVASTATIN 40 MG TAB PO SCH (09:00)
[2023-08-24 09:48] VITALS: BP 127/57
[2023-08-24] MEDS ORDERED: PRED10TA2 PO (11:26)
[2023-08-24] MEDS ORDERED: PRED20TA PO (11:26)
[2023-08-24] MEDS ORDERED: CEFD300C41 PO (11:26)
[2023-08-24] MEDS ORDERED: ALBU6.7H6 INH (11:29)
[2023-08-24] MEDS ORDERED: DOXY100C3 PO (11:29)
[2023-08-24] MEDS ORDERED: AZIT-12 PO (11:29)
[2023-08-24] MEDS ORDERED: SPIR1CAP INH (11:29)
[2023-08-24 11:57] LABS: CA19-9 TUMOR MARKER,CARBOHYDRA 14.5 U/ML (<35.0)
[2023-08-24 12:47] VITALS: BP 147/70; TEMP 98.3; O2SAT 98
== END 2023-08-24 14:07 | disposition home health service (06) | DRG 190 ==
LOC: M ED 14:03 → M ED INP 08-24 00:24
PROVIDERS: ADMIT Internal Medicine; ATTEND General Practice
DX: J44.0 Chronic obstructive pulmonary disease with (acute) lower respiratory infection (principal); J15.69 Pneumonia due to other Gram-negative bacteria; R63.4 Abnormal weight loss; E11.9 Type 2 diabetes mellitus without complications; F41.9 Anxiety disorder, unspecified; G89.29 Other chronic pain; E78.5 Hyperlipidemia, unspecified; I10 Essential (primary) hypertension; J44.1 Chronic obstructive pulmonary disease with (acute) exacerbation; M54.9 Dorsalgia, unspecified; F39 Unspecified mood [affective] disorder; F10.10 Alcohol abuse, uncomplicated; F17.200 Nicotine dependence, unspecified, uncomplicated; Z79.899 Other long term (current) drug therapy; Z79.4 Long term (current) use of insulin